=== PATIENT | male | born 1940 | race Caucasian/White ===

== ENCOUNTER → 2023-10-11 10:59 | Outpatient (REF) | payer OTHER, SELFPAY ==
[2023-10-11 15:21] LABS: Hematocrit 46.6 % (39.0-52.0); Hemoglobin 15.5 g/dL (13.0-18.0); Mean Corp Hgb Conc. 33.3 g/dL (33.0-37.0); Mean Corpuscular Hgb 30.6 pg (27.0-31.0); Mean Corpuscular Volume 91.9 fL (80.0-94.0); Mean Platelet Volume 11.3 fL (7.4-10.4); Platelet Count 141 10^3/uL (130-400); Red Blood Cell Count 5.07 10^6/uL (4.70-6.10); Red Cell Dist. Width 14.6 % (11.5-14.5)
[2023-10-11 15:29] LABS: ALT (SGPT) 27 U/L (0-50); AST (SGOT) 36 U/L (17-59); Albumin 3.8 g/dl (3.5-5.0); Alkaline Phosphatase 101 U/L (38-126); Blood Urea Nitrogen 22 mg/dl (9-20); Calcium 9.4 mg/dl (8.4-10.2); Carbon Dioxide 28 mmol/L (22-30); Chloride 101 mmol/L (98-107); Glucose 87 mg/dl (70-99); Sodium 139 mmol/L (135-145); Total Bilirubin 0.8 mg/dl (0.2-1.3); Total Protein 6.9 g/dl (6.3-8.2); eGFR 59.63
[2023-10-11 16:00] LABS: Testosterone, Total 16.3 ng/dl (72-623)
== END ==
LOC: HWLAB 10:59
PROVIDERS: ATTENDING PHYSICIAN Specialist; FAMILY PHYSICIAN Nurse Practitioner Family
DX: C67.2 Malignant neoplasm of lateral wall of bladder (principal); C61 Malignant neoplasm of prostate
CPT/HCPCS: 36415; 80053; 84153; 84403; 85027

== ENCOUNTER → 2024-01-06 11:58 | Outpatient (REF) | payer OTHER, SELFPAY ==
[2024-01-06 16:31] LABS: ALT (SGPT) 25 U/L (0-50); AST (SGOT) 34 U/L (17-59); Albumin 4.1 g/dl (3.5-5.0); Alkaline Phosphatase 120 U/L (38-126); Blood Urea Nitrogen 25 mg/dl (9-20); Calcium 9.4 mg/dl (8.4-10.2); Carbon Dioxide 32 mmol/L (22-30); Chloride 101 mmol/L (98-107); Glucose 83 mg/dl (70-99); Potassium 4.7 mmol/L (3.5-5.1); Sodium 136 mmol/L (135-145); Total Bilirubin 0.7 mg/dl (0.2-1.3); Total Protein 7.3 g/dl (6.3-8.2); eGFR > 60.00
== END ==
LOC: HWLAB 11:58
PROVIDERS: ATTENDING PHYSICIAN Specialist; FAMILY PHYSICIAN Nurse Practitioner Family
DX: C67.2 Malignant neoplasm of lateral wall of bladder (principal); C61 Malignant neoplasm of prostate
CPT/HCPCS: 36415; 80053; 84153

== ENCOUNTER → 2024-01-23 07:55 | Outpatient (REF) | payer OTHER, SELFPAY ==
[2024-01-23 12:18] LABS: ALT (SGPT) 13 U/L (0-50); AST (SGOT) 25 U/L (17-59); Albumin 3.9 g/dl (3.5-5.0); Alkaline Phosphatase 97 U/L (38-126); Blood Urea Nitrogen 23 mg/dl (9-20); Calcium 9.3 mg/dl (8.4-10.2); Carbon Dioxide 31 mmol/L (22-30); Chloride 101 mmol/L (98-107); Glucose 97 mg/dl (70-99); Potassium 4.7 mmol/L (3.5-5.1); Sodium 139 mmol/L (135-145); Total Bilirubin 0.6 mg/dl (0.2-1.3); Total Protein 7.2 g/dl (6.3-8.2); eGFR 59.63
== END ==
LOC: HWLAB 07:55
PROVIDERS: ATTENDING PHYSICIAN Internal Medicine Hematology & Oncology; FAMILY PHYSICIAN Nurse Practitioner Family; REFERRING PHYSICIAN Specialist
DX: C67.2 Malignant neoplasm of lateral wall of bladder (principal)
CPT/HCPCS: 36415; 80053; 84153

== ENCOUNTER → 2024-01-23 14:09 | Outpatient (REF) | payer OTHER, SELFPAY | LOC: CLAB 14:09 | PROVIDERS: ATTENDING PHYSICIAN Specialist | DX: C67.2 Malignant neoplasm of lateral wall of bladder (principal) | CPT/HCPCS: 88112 ==

== ENCOUNTER → 2024-02-06 11:13 | Outpatient (REF) | payer OTHER, SELFPAY ==
[2024-02-06 14:42] LABS: HDL Cholesterol 63 mg/dl; LDL Cholesterol, Calculated 62 mg/dl; Total Cholesterol 137 mg/dl (50-199); Triglyceride 61 mg/dl (10-149); Very Low Density Lipoprotein 12 mg/dl (0-30)
== END ==
LOC: HWLAB 11:13
PROVIDERS: ATTENDING PHYSICIAN Nurse Practitioner; FAMILY PHYSICIAN Nurse Practitioner Family
DX: E78.5 Hyperlipidemia, unspecified (principal)
CPT/HCPCS: 36415; 80061

== ENCOUNTER → 2024-02-28 09:21 | Outpatient (REF) | payer OTHER, SELFPAY | LOC: HWRCS 09:21 | PROVIDERS: ATTENDING PHYSICIAN Nurse Practitioner; FAMILY PHYSICIAN Nurse Practitioner Family | DX: I25.5 Ischemic cardiomyopathy (principal) | CPT/HCPCS: 93306 ==

== ENCOUNTER → 2024-03-30 09:55 | Outpatient (REF) | payer OTHER, SELFPAY | LOC: HWLAB 09:55 | PROVIDERS: ATTENDING PHYSICIAN Internal Medicine Hematology & Oncology; FAMILY PHYSICIAN Nurse Practitioner Family | DX: C61 Malignant neoplasm of prostate (principal); C67.9 Malignant neoplasm of bladder, unspecified | CPT/HCPCS: 36415; 84153 ==

== ENCOUNTER → 2024-04-16 09:45 | Outpatient (REF) | payer OTHER, SELFPAY ==
[2024-04-16 14:31] LABS: ALT (SGPT) 14 U/L (0-50); AST (SGOT) 23 U/L (17-59); Albumin 2.8 g/dl (3.5-5.0); Alkaline Phosphatase 137 U/L (38-126); Blood Urea Nitrogen 18 mg/dl (9-20); Calcium 9.6 mg/dl (8.4-10.2); Carbon Dioxide 31 mmol/L (22-30); Chloride 102 mmol/L (98-107); Glucose 93 mg/dl (70-99); Potassium 4.9 mmol/L (3.5-5.1); Sodium 140 mmol/L (135-145); Total Bilirubin 0.7 mg/dl (0.2-1.3); Total Protein 6.8 g/dl (6.3-8.2); eGFR 59.26
== END ==
LOC: HWLAB 09:45
PROVIDERS: ATTENDING PHYSICIAN Internal Medicine Hematology & Oncology; FAMILY PHYSICIAN Nurse Practitioner Family
DX: C61 Malignant neoplasm of prostate (principal); C67.9 Malignant neoplasm of bladder, unspecified
CPT/HCPCS: 36415; 80053; 84153

== ENCOUNTER → 2024-07-17 11:34 | Outpatient (REF) | payer OTHER, SELFPAY ==
[2024-07-17 16:53] LABS: % Basophils 0.6 % (0-2); % Eosinophils 2.8 % (0-6); % Immature Granulocytes 0.4 % (0-0.5); % Lymphocytes 17.7 % (20.5-51.1); % Monocytes 10.7 % (1.7-9.3); % Neutrophils 67.8 % (42.2-75.2); Absolute Basophils 0.1 10^3/uL (0-0.2); Absolute Eosinophils 0.2 10^3/uL (0-0.7); Absolute Lymphocytes 1.5 10^3/uL (1.2-3.4); Absolute Monocytes 0.9 10^3/uL (0.1-0.6); Absolute Neutrophils 5.7 10^3/uL (1.4-6.5); Hematocrit 44.6 % (39.0-52.0); Hemoglobin 14.6 g/dL (13.0-18.0); Mean Corp Hgb Conc. 32.7 g/dL (33.0-37.0); Mean Corpuscular Hgb 30.2 pg (27.0-31.0); Mean Corpuscular Volume 92.3 fL (80.0-94.0); Mean Platelet Volume 10.6 fL (7.4-10.4); Nucleated Red Blood Cells % 0 % (-); Platelet Count 216 10^3/uL (130-400); Red Blood Cell Count 4.83 10^6/uL (4.70-6.10); Red Cell Dist. Width 14.5 % (11.5-14.5); White Blood Cell Count 8.4 10^3/uL (4.8-10.8)
[2024-07-17 17:01] LABS: ALT (SGPT) < 10 U/L (0-50); AST (SGOT) 18 U/L (17-59); Albumin 3.8 g/dl (3.5-5.0); Alkaline Phosphatase 112 U/L (38-126); Blood Urea Nitrogen 19 mg/dl (9-20); Calcium 9.5 mg/dl (8.4-10.2); Carbon Dioxide 35 mmol/L (22-30); Chloride 100 mmol/L (98-107); Glucose 97 mg/dl (70-99); Potassium 5.3 mmol/L (3.5-5.1); Sodium 141 mmol/L (135-145); Total Bilirubin 0.7 mg/dl (0.2-1.3); eGFR > 60.00
== END ==
LOC: HWLAB 11:34
PROVIDERS: ATTENDING PHYSICIAN Internal Medicine Hematology & Oncology; FAMILY PHYSICIAN Nurse Practitioner Family
DX: C61 Malignant neoplasm of prostate (principal); C67.9 Malignant neoplasm of bladder, unspecified
CPT/HCPCS: 36415; 80053; 84153; 85025

== ENCOUNTER → 2024-09-06 11:18 | Outpatient (REF) | payer OTHER, SELFPAY ==
[2024-09-06 13:35] LABS: Potassium 4.5 mmol/L (3.5-5.1)
== END ==
LOC: HWLAB 11:18
PROVIDERS: ATTENDING PHYSICIAN Nurse Practitioner Family
DX: R06.09 Other forms of dyspnea (principal); E87.5 Hyperkalemia
CPT/HCPCS: 36415; 71046; 84132

== ENCOUNTER → 2024-10-15 12:27 | Outpatient (REF) | payer OTHER, SELFPAY ==
[2024-10-15 15:46] LABS: % Basophils 0.5 % (0-2); % Eosinophils 1.7 % (0-6); % Immature Granulocytes 0.4 % (0-0.5); % Lymphocytes 16.2 % (20.5-51.1); % Neutrophils 69.2 % (42.2-75.2); Absolute Eosinophils 0.1 10^3/uL (0-0.7); Absolute Lymphocytes 1.3 10^3/uL (1.2-3.4); Absolute Monocytes 0.9 10^3/uL (0.1-0.6); Absolute Neutrophils 5.4 10^3/uL (1.4-6.5); Hematocrit 42.2 % (39.0-52.0); Hemoglobin 13.2 g/dL (13.0-18.0); Mean Corp Hgb Conc. 31.3 g/dL (33.0-37.0); Mean Corpuscular Hgb 28.5 pg (27.0-31.0); Mean Corpuscular Volume 91.1 fL (80.0-94.0); Mean Platelet Volume 10.5 fL (7.4-10.4); Nucleated Red Blood Cells % 0 % (-); Platelet Count 231 10^3/uL (130-400); Red Blood Cell Count 4.63 10^6/uL (4.70-6.10); Red Cell Dist. Width 14.1 % (11.5-14.5); White Blood Cell Count 7.8 10^3/uL (4.8-10.8)
[2024-10-15 15:57] LABS: ALT (SGPT) < 10 U/L (0-50); AST (SGOT) 15 U/L (17-59); Albumin 3.5 g/dl (3.5-5.0); Alkaline Phosphatase 110 U/L (38-126); Blood Urea Nitrogen 18 mg/dl (9-20); Calcium 8.8 mg/dl (8.4-10.2); Carbon Dioxide 27 mmol/L (22-30); Chloride 99 mmol/L (98-107); Glucose 83 mg/dl (70-99); Potassium 4.2 mmol/L (3.5-5.1); Sodium 136 mmol/L (135-145); Total Protein 6.6 g/dl (6.3-8.2); eGFR > 60.00
== END ==
LOC: HWLAB 12:27
PROVIDERS: ATTENDING PHYSICIAN Internal Medicine Hematology & Oncology; FAMILY PHYSICIAN Nurse Practitioner Family
DX: C61 Malignant neoplasm of prostate (principal); C67.9 Malignant neoplasm of bladder, unspecified
CPT/HCPCS: 36415; 80053; 84153; 85025

== ENCOUNTER 2024-11-14 19:09 | Inpatient (IN) | payer OTHER, SELFPAY ==
[2024-11-14] VITALS (9 sets, daily range): BP systolic 133–179; BP diastolic 74–138; BMI 24.7; BMI 25.0
--- NOTE | 2024-11-14 14:32 | ED.GENMED ---
History of Present Illness
<Tomy Dorman PA-C - Last Filed: 11/14/24 14:37>
General
Chief Complaint: Musculo-Skeletal Complaint
Source: patient
Exam Limitations: none
Time Seen by Provider: 11/14/24 14:04
History of Present Illness
History of Present Illness:
84-year-old male presents with right hip pain following a fall he sustained 2 weeks ago. He fell onto his right hip and some pain and occasional giving way sensation. He is also been complaining of a headache generalized fatigue decreased appetite
and weight loss. He has a history of bladder cancer and is currently followed by oncology. He lives at home with his family. He uses a walker for ambulation as of more recently. Otherwise, he has multiple vague complaints.
Past History
<Tomy Dorman PA-C - Last Filed: 11/14/24 14:37>
Past History
ED Past Medical History: Arrthythmia (Bradycardia), CAD, Cancer (Prostate, bladder), GERD, HTN and Other (Rheumatoid arthritis)
ED Past Surgical History: Cholecystectomy and Urological (prostatectomy, cysto w/ bladder lesion resection)
Social History
Tobacco: Former smoker
Alcohol: Occasional
Drug: None
Personal:
Living: with family
Employment: Retired
Family History
Family History: Hypertension
Phy Exam
<Tomy Dorman PA-C - Last Filed: 11/14/24 14:37>
Physical Exam
Physical Exam:
General: Elderly male chronically ill in appearance
HEENT: Normocephalic atraumatic
Heart: Regular rate and rhythm
Lungs: Clear no wheeze
Abdomen is soft nontender nondistended no guarding or rebound
Extremities: No cyanosis or edema
Musculoskeletal exam: Patient is tender over the right lateral hip. No deformities. Good passive range of motion.
Course
<Tomy Dorman PA-C - Last Filed: 11/14/24 14:37>
Orders/Labs/Results
Orders:
Orders
11/14/24 14:24
CT Head W/o Iv Contrast Urgent
Comment:
Reason For Exam: fall
CR Hip - RT w/wo Pel 2-3 Vw* Urgent
Comment:
Reason For Exam: pain after fall right hip
Include a pelvis x-ray?: Yes
11/14/24 14:26
CR Chest - 2 Views Urgent
Comment:
Reason For Exam: weakness, cough
11/14/24 14:32
Complete Blood Count/With Diff Urgent
Comprehensive Metabolic Panel Urgent
11/14/24 Dinner
Cholesterol Lowering
At Your Request: Non-Participating
Cholesterol Lowering: Sodium, 2 Gram
11/14/24 15:34
CT Pelvis W/o Iv Contrast Urgent
Comment:
Reason For Exam: right hip pain
11/14/24 18:37
Admit/Transfer Patient As Directed
Co-Sign Provider:
Level of Care: Inpatient admission
Assign to:: Medical/Surgical
Physician / Group: Edin Roberson
Diagnosis: acute nondisplaced fx of R greater trochanter
Reason for Hospitalization: acute nondisplaced fx of R greater trochanter
Expected length of stay greater than two midnights?: Yes
ELOS- Estimated Length of Stay in days: 3
I certify the patient meets the requirements for IP care: Yes
PRN Pain Medication Management As Directed
May give lesser potent ordered pain med per pt: Yes
preference::
Protocol:: Medication orders for pain may be administered in a
manner that supports deferring to patient preference
when the pt is:
- Requesting an ordered lesser potent pain medication.
Least to most potent pain medications are defined
as: acetaminophen < NSAID < tramadol < opioids
(morphine, oxycodone, hydromorphone).
- Requesting a lesser dose of the same medication IF
ORDERED.
- Requesting a less intrusive route of administration
if both routes are prescribed by the provider (PO <
IV).
11/14/24 18:39
Code Status As Directed
Resuscitation Status: Do not resuscitate
Reached after discussion with pt or family/Healthcare POA: Yes
11/14/24 18:40
DNR Bracelet Application ONCE
11/14/24 19:13
Urinalysis Reflex To Culture Routine
Urine Microscopic Reflex Cult Routine
Urine Culture Routine
GENTRY Source: U
Specimen Description:
11/14/24 20:12
Acetaminophen [Tylenol] 650 mg PO Q4HPRN PRN
Hydroxychloroquine [Plaquenil] 200 mg PO BID
11/14/24 20:12
ORTHOPEDIC CONSULT Routine
Consulting Provider: Cristopher Baig
Was physician already notified: Yes
Activity As Directed
Activity Level: Out of Bed-Early Mobility
Pneumatic Compression Sleeves As Directed
Type: Knee high
Vital Signs As Directed
Frequency: Per unit guidelines
Weight As Directed
Frequency: Once
Ot Eval And Treat Routine
Pt Eval And Treat Routine
Activity Level: With Assistance
DX Deep Vein Thrombosis Video Routine
11/14/24 21:00
Metoprolol Xl [Toprol Xl] 25 mg PO BID
11/15/24 Breakfast
NPO
Allow oral meds: Yes
Allow clear liquids: No
Basic Metabolic Panel IN AM
Complete Blood Count/No Diff IN AM
11/15/24 08:00
Amlodipine [Norvasc] 5 mg PO DAILY
Aspirin Low Dose EC [Aspir Low (Enteric Coated)] 81 mg PO DAILY
Calcium Carbonate/Vitamin D3 [Oscal 500 + D] 500 mg PO DAILY
Lisinopril [Zestril] 40 mg PO DAILY
Memantine HCl [Namenda] 5 mg PO DAILY
Pantoprazole [Protonix] 20 mg PO DAILY
Prednisone [Deltasone] 2.5 mg PO DAILY
Rosuvastatin Calcium [Crestor] 10 mg PO DAILY
Spironolactone [Aldactone] 25 mg PO DAILY
Vit C/Vit E/Lutein/Min/[place]-3 [Ocuvite Softgel] 1 cap PO DAILY
enzalutamide [Xtandi] See Dose Instructions PO DAILY
Abnormal Lab Results
11/14/24
14:32
RBC 4.19 L 10^6/uL
(4.70-6.10)
Hgb 12.3 L g/dL
(13.0-18.0)
Hct 37.6 L %
(39.0-52.0)
MCHC 32.7 L g/dL
(33.0-37.0)
RDW 14.9 H %
(11.5-14.5)
Absolute Neuts (auto) 7.2 H 10^3/uL
(1.4-6.5)
Absolute Lymphs (auto) 0.9 L 10^3/uL
(1.2-3.4)
Absolute Monos (auto) 1.0 H 10^3/uL
(0.1-0.6)
Neutrophils % 77.6 H %
(42.2-75.2)
Lymphocytes % 10.0 L %
(20.5-51.1)
Monocytes % 11.0 H %
(1.7-9.3)
BUN 22 H mg/dl
(9-20)
Alkaline Phosphatase 142 H U/L
(38-126)
Albumin 3.3 L g/dl
(3.5-5.0)
11/14/24 14:32
11/14/24 14:32
Vital Signs
Initial and Last Documented VS:
Initial Vital Signs
Pulse Resp BP Pulse Ox
60 18 133/74 96
11/14/24 13:11 11/14/24 13:11 11/14/24 13:11 11/14/24 13:11
Last Documented Vital Signs
Temp Pulse Resp BP Pulse Ox
37.1 C 52 16 168/92 97
11/14/24 23:13 11/14/24 23:13 11/14/24 23:13 11/14/24 23:13 11/14/24 23:13
<Jennifer Schuler PA-C - Last Filed: 11/14/24 23:57>
Orders/Labs/Results
Orders:
Orders
11/14/24 14:24
CT Head W/o Iv Contrast Urgent
Comment:
Reason For Exam: fall
CR Hip - RT w/wo Pel 2-3 Vw* Urgent
Comment:
Reason For Exam: pain after fall right hip
Include a pelvis x-ray?: Yes
11/14/24 14:26
CR Chest - 2 Views Urgent
Comment:
Reason For Exam: weakness, cough
11/14/24 14:32
Complete Blood Count/With Diff Urgent
Comprehensive Metabolic Panel Urgent
11/14/24 Dinner
Cholesterol Lowering
At Your Request: Non-Participating
Cholesterol Lowering: Sodium, 2 Gram
11/14/24 15:34
CT Pelvis W/o Iv Contrast Urgent
Comment:
Reason For Exam: right hip pain
11/14/24 18:37
Admit/Transfer Patient As Directed
Co-Sign Provider:
Level of Care: Inpatient admission
Assign to:: Medical/Surgical
Physician / Group: Edin Roberson
Diagnosis: acute nondisplaced fx of R greater trochanter
Reason for Hospitalization: acute nondisplaced fx of R greater trochanter
Expected length of stay greater than two midnights?: Yes
ELOS- Estimated Length of Stay in days: 3
I certify the patient meets the requirements for IP care: Yes
PRN Pain Medication Management As Directed
May give lesser potent ordered pain med per pt: Yes
preference::
Protocol:: Medication orders for pain may be administered in a
manner that supports deferring to patient preference
when the pt is:
- Requesting an ordered lesser potent pain medication.
Least to most potent pain medications are defined
as: acetaminophen < NSAID < tramadol < opioids
(morphine, oxycodone, hydromorphone).
- Requesting a lesser dose of the same medication IF
ORDERED.
- Requesting a less intrusive route of administration
if both routes are prescribed by the provider (PO <
IV).
11/14/24 18:39
Code Status As Directed
Resuscitation Status: Do not resuscitate
Reached after discussion with pt or family/Healthcare POA: Yes
11/14/24 18:40
DNR Bracelet Application ONCE
11/14/24 19:13
Urinalysis Reflex To Culture Routine
Urine Microscopic Reflex Cult Routine
Urine Culture Routine
GENTRY Source: U
Specimen Description:
11/14/24 20:12
Acetaminophen [Tylenol] 650 mg PO Q4HPRN PRN
Hydroxychloroquine [Plaquenil] 200 mg PO BID
11/14/24 20:12
ORTHOPEDIC CONSULT Routine
Consulting Provider: Cristopher Baig
Was physician already notified: Yes
Activity As Directed
Activity Level: Out of Bed-Early Mobility
Pneumatic Compression Sleeves As Directed
Type: Knee high
Vital Signs As Directed
Frequency: Per unit guidelines
Weight As Directed
Frequency: Once
Ot Eval And Treat Routine
Pt Eval And Treat Routine
Activity Level: With Assistance
DX Deep Vein Thrombosis Video Routine
11/14/24 21:00
Metoprolol Xl [Toprol Xl] 25 mg PO BID
11/15/24 Breakfast
NPO
Allow oral meds: Yes
Allow clear liquids: No
Basic Metabolic Panel IN AM
Complete Blood Count/No Diff IN AM
11/15/24 08:00
Amlodipine [Norvasc] 5 mg PO DAILY
Aspirin Low Dose EC [Aspir Low (Enteric Coated)] 81 mg PO DAILY
Calcium Carbonate/Vitamin D3 [Oscal 500 + D] 500 mg PO DAILY
Lisinopril [Zestril] 40 mg PO DAILY
Memantine HCl [Namenda] 5 mg PO DAILY
Pantoprazole [Protonix] 20 mg PO DAILY
Prednisone [Deltasone] 2.5 mg PO DAILY
Rosuvastatin Calcium [Crestor] 10 mg PO DAILY
Spironolactone [Aldactone] 25 mg PO DAILY
Vit C/Vit E/Lutein/Min/[place]-3 [Ocuvite Softgel] 1 cap PO DAILY
enzalutamide [Xtandi] See Dose Instructions PO DAILY
Abnormal Lab Results
11/14/24
14:32
RBC 4.19 L 10^6/uL
(4.70-6.10)
Hgb 12.3 L g/dL
(13.0-18.0)
Hct 37.6 L %
(39.0-52.0)
MCHC 32.7 L g/dL
(33.0-37.0)
RDW 14.9 H %
(11.5-14.5)
Absolute Neuts (auto) 7.2 H 10^3/uL
(1.4-6.5)
Absolute Lymphs (auto) 0.9 L 10^3/uL
(1.2-3.4)
Absolute Monos (auto) 1.0 H 10^3/uL
(0.1-0.6)
Neutrophils % 77.6 H %
(42.2-75.2)
Lymphocytes % 10.0 L %
(20.5-51.1)
Monocytes % 11.0 H %
(1.7-9.3)
BUN 22 H mg/dl
(9-20)
Alkaline Phosphatase 142 H U/L
(38-126)
Albumin 3.3 L g/dl
(3.5-5.0)
11/14/24 14:32
11/14/24 14:32
Vital Signs
Initial and Last Documented VS:
Initial Vital Signs
Pulse Resp BP Pulse Ox
60 18 133/74 96
11/14/24 13:11 11/14/24 13:11 11/14/24 13:11 11/14/24 13:11
Last Documented Vital Signs
Temp Pulse Resp BP Pulse Ox
37.1 C 52 16 168/92 97
11/14/24 23:13 11/14/24 23:13 11/14/24 23:13 11/14/24 23:13 11/14/24 23:13
<Jerrod Manzano MD - Last Filed: 11/14/24 17:35>
Orders/Labs/Results
Orders:
Orders
11/14/24 14:24
CT Head W/o Iv Contrast Urgent
Comment:
Reason For Exam: fall
CR Hip - RT w/wo Pel 2-3 Vw* Urgent
Comment:
Reason For Exam: pain after fall right hip
Include a pelvis x-ray?: Yes
11/14/24 14:26
CR Chest - 2 Views Urgent
Comment:
Reason For Exam: weakness, cough
11/14/24 14:32
Complete Blood Count/With Diff Urgent
Comprehensive Metabolic Panel Urgent
11/14/24 Dinner
Cholesterol Lowering
At Your Request: Non-Participating
Cholesterol Lowering: Sodium, 2 Gram
11/14/24 15:34
CT Pelvis W/o Iv Contrast Urgent
Comment:
Reason For Exam: right hip pain
11/14/24 18:37
Admit/Transfer Patient As Directed
Co-Sign Provider:
Level of Care: Inpatient admission
Assign to:: Medical/Surgical
Physician / Group: Edin Roberson
Diagnosis: acute nondisplaced fx of R greater trochanter
Reason for Hospitalization: acute nondisplaced fx of R greater trochanter
Expected length of stay greater than two midnights?: Yes
ELOS- Estimated Length of Stay in days: 3
I certify the patient meets the requirements for IP care: Yes
PRN Pain Medication Management As Directed
May give lesser potent ordered pain med per pt: Yes
preference::
Protocol:: Medication orders for pain may be administered in a
manner that supports deferring to patient preference
when the pt is:
- Requesting an ordered lesser potent pain medication.
Least to most potent pain medications are defined
as: acetaminophen < NSAID < tramadol < opioids
(morphine, oxycodone, hydromorphone).
- Requesting a lesser dose of the same medication IF
ORDERED.
- Requesting a less intrusive route of administration
if both routes are prescribed by the provider (PO <
IV).
11/14/24 18:39
Code Status As Directed
Resuscitation Status: Do not resuscitate
Reached after discussion with pt or family/Healthcare POA: Yes
11/14/24 18:40
DNR Bracelet Application ONCE
11/14/24 19:13
Urinalysis Reflex To Culture Routine
Urine Microscopic Reflex Cult Routine
Urine Culture Routine
GENTRY Source: U
Specimen Description:
11/14/24 20:12
Acetaminophen [Tylenol] 650 mg PO Q4HPRN PRN
Hydroxychloroquine [Plaquenil] 200 mg PO BID
11/14/24 20:12
ORTHOPEDIC CONSULT Routine
Consulting Provider: Cristopher Baig
Was physician already notified: Yes
Activity As Directed
Activity Level: Out of Bed-Early Mobility
Pneumatic Compression Sleeves As Directed
Type: Knee high
Vital Signs As Directed
Frequency: Per unit guidelines
Weight As Directed
Frequency: Once
Ot Eval And Treat Routine
Pt Eval And Treat Routine
Activity Level: With Assistance
DX Deep Vein Thrombosis Video Routine
11/14/24 21:00
Metoprolol Xl [Toprol Xl] 25 mg PO BID
11/15/24 Breakfast
NPO
Allow oral meds: Yes
Allow clear liquids: No
Basic Metabolic Panel IN AM
Complete Blood Count/No Diff IN AM
11/15/24 08:00
Amlodipine [Norvasc] 5 mg PO DAILY
Aspirin Low Dose EC [Aspir Low (Enteric Coated)] 81 mg PO DAILY
Calcium Carbonate/Vitamin D3 [Oscal 500 + D] 500 mg PO DAILY
Lisinopril [Zestril] 40 mg PO DAILY
Memantine HCl [Namenda] 5 mg PO DAILY
Pantoprazole [Protonix] 20 mg PO DAILY
Prednisone [Deltasone] 2.5 mg PO DAILY
Rosuvastatin Calcium [Crestor] 10 mg PO DAILY
Spironolactone [Aldactone] 25 mg PO DAILY
Vit C/Vit E/Lutein/Min/[place]-3 [Ocuvite Softgel] 1 cap PO DAILY
enzalutamide [Xtandi] See Dose Instructions PO DAILY
Abnormal Lab Results
11/14/24
14:32
RBC 4.19 L 10^6/uL
(4.70-6.10)
Hgb 12.3 L g/dL
(13.0-18.0)
Hct 37.6 L %
(39.0-52.0)
MCHC 32.7 L g/dL
(33.0-37.0)
RDW 14.9 H %
(11.5-14.5)
Absolute Neuts (auto) 7.2 H 10^3/uL
(1.4-6.5)
Absolute Lymphs (auto) 0.9 L 10^3/uL
(1.2-3.4)
Absolute Monos (auto) 1.0 H 10^3/uL
(0.1-0.6)
Neutrophils % 77.6 H %
(42.2-75.2)
Lymphocytes % 10.0 L %
(20.5-51.1)
Monocytes % 11.0 H %
(1.7-9.3)
BUN 22 H mg/dl
(9-20)
Alkaline Phosphatase 142 H U/L
(38-126)
Albumin 3.3 L g/dl
(3.5-5.0)
11/14/24 14:32
11/14/24 14:32
Vital Signs
Initial and Last Documented VS:
Initial Vital Signs
Pulse Resp BP Pulse Ox
60 18 133/74 96
11/14/24 13:11 11/14/24 13:11 11/14/24 13:11 11/14/24 13:11
Last Documented Vital Signs
Temp Pulse Resp BP Pulse Ox
37.1 C 52 16 168/92 97
11/14/24 23:13 11/14/24 23:13 11/14/24 23:13 11/14/24 23:13 11/14/24 23:13
<Tomy Dorman PA-C - Last Filed: 11/14/24 14:37>
MDM/Problems Addressed
Differential Diagnosis Includes:
Primary reason for visit was continued right hip pain and instability following a fall 2 weeks ago no obvious deformities on exam but x-rays right hip pending to evaluate for fracture or dislocation. Secondarily patient is here for generalized
weakness ongoing headache decreased appetite and weight loss.
CT head pending will check labs urinalysis
<Jennifer Schuler PA-C - Last Filed: 11/14/24 23:57>
*Critical Care Note
Total Time (30-74mins, 75-104mins- exclusive of procedures): Not Applicable
<Jennifer Schuler PA-C - Last Filed: 11/14/24 23:57>
Update Note
Update Note:
assumed care from [facility] at [address] which shows aucte nondisplaced greater trochanter fx and metatastatic lesions in iliac bones
will admit to medicine
dr baig from [facility]
ED Attending Note
<Tomy Dorman PA-C - Last Filed: 11/14/24 14:37>
-
Portions of this chart may have been created with voice recognition software.� Occasional wrong word or��sound alike� substitutions may have occurred due to the inherent limitations of voice recognition software.
<Jerrod Manzano MD - Last Filed: 11/14/24 17:35>
ED Attending Note
Patient seen and examined by attending physician: Yes
ED Attending Note:
I have seen and evaluated the patient with a [id number] encounter. I have spoken to the advance practicer provider and involved in the medical history, the physical exam, medical decision making.
Evaluation and management service: agree unless noted differently below.
Results interpretation: agree unless noted differently below.
Focused HPI: 84-year-old male with history as noted presents to the ER with daughter for evaluation of hip pain after a fall. Patient had a mechanical fall about a week ago has had pain in the right hip since. Difficulty bearing weight. He denies
any other injuries including headache, neck pain, back pain, rib pain. He is on aspirin no other blood thinners.
Physical exam: Awake alert, normal vitals. He has tenderness over the greater trochanter on the right; significant pain with range of motion of the right hip but he is able to fully flex and extend. Good distal pulse right lower extremity. No
signs of trauma to the rest of the extremities. No rib tenderness. Head atraumatic. Good range of motion of the cervical spine.
Medical Decision Makin-year-old male presents after fall with right hip pain. Vitals and exam as above. X-ray of the hip no clear fracture. Follow-up CT showed nondisplaced fracture of the greater trochanter. Admit for further
management�will need ortho consultation will need to be nonweightbearing suspect will need placement in rehab.
Discharge Plan
Departure
Patient Disposition: Admit
Date of Disposition: 11/14/24
Time of Disposition: 17:20
Admit to: Med/Surg
Presentation/result/management discussed w/ accepting MD/DO: Hospitalist
Condition: Fair
Covid-19: Not Applicable
Discharge Problem:
Closed hip fracture, Metastatic cancer to bone
Interventions
Interventions:
*Risk Screen - Suicide Last Done: 11/14/24 13:11
*General Assessment Last Done: 11/14/24 13:11
*Neglect/Abuse Screening Last Done: 11/14/24 20:10
*ED- Fall Risk Assessment Last Done: 11/14/24 14:41
*ED COVID-19 Vaccine History Last Done: 11/14/24 13:11
*Nursing Disposition Last Done: 11/14/24 20:10
ED-Musculoskeletal Assessment Last Done: 11/14/24 14:41
Discharge Date and Time
Discharge Date/Time: 11/14/24 20:17
[2024-11-14 14:44] LABS: % Basophils 0.4 % (0-2); % Eosinophils 0.7 % (0-6); % Immature Granulocytes 0.3 % (0-0.5); % Neutrophils 77.6 % (42.2-75.2); Absolute Eosinophils 0.1 10^3/uL (0-0.7); Absolute Lymphocytes 0.9 10^3/uL (1.2-3.4); Absolute Neutrophils 7.2 10^3/uL (1.4-6.5); Hematocrit 37.6 % (39.0-52.0); Hemoglobin 12.3 g/dL (13.0-18.0); Mean Corp Hgb Conc. 32.7 g/dL (33.0-37.0); Mean Corpuscular Hgb 29.4 pg (27.0-31.0); Mean Corpuscular Volume 89.7 fL (80.0-94.0); Mean Platelet Volume 9.1 fL (7.4-10.4); Nucleated Red Blood Cells % 0 % (-); Platelet Count 210 10^3/uL (130-400); Red Blood Cell Count 4.19 10^6/uL (4.70-6.10); Red Cell Dist. Width 14.9 % (11.5-14.5); White Blood Cell Count 9.2 10^3/uL (4.8-10.8)
[2024-11-14 15:04] LABS: ALT (SGPT) < 10 U/L (0-50); AST (SGOT) 17 U/L (17-59); Albumin 3.3 g/dl (3.5-5.0); Alkaline Phosphatase 142 U/L (38-126); Blood Urea Nitrogen 22 mg/dl (9-20); Carbon Dioxide 30 mmol/L (22-30); Chloride 103 mmol/L (98-107); Estimated Creatinine Clearance 41 ml/min; Glucose 83 mg/dl (70-99); Potassium 4.8 mmol/L (3.5-5.1); Sodium 139 mmol/L (135-145); Total Protein 6.4 g/dl (6.3-8.2); eGFR 59.26
--- NOTE | 2024-11-14 17:34 | HPS.HSE ---
Family Physician
-
Family Physician: ANDREW Mercado
Chief Complaint
-
right hip pain
History of Present Illness
Patient is a 84-year-old male with past medical history significant for essential hypertension, hyperlipidemia, CAD, Alzheimer's disease, GERD, bladder cancer and metastatic prostate cancer who presented to [facility] ED for evaluation of
right hip pain. Patient reports slipping from out of bed approximately 1.5 weeks ago and landed on hard floor on right hip. Denies any loss of consciousness or head strike. He also has complaints of headache, generalized fatigue, decreased appetite
and weight loss. Patient lives at home with daughter and utilizes a walker to ambulate. He reports since fall he has noticed hip pain with ambulation and occasional leg giving out when trying to ambulate, denies any further falls.
Medical History
Past Medical History
Past Medical History: Reports Other
Additional Past Medical History:
essential hypertension
hyperlipidemia
CAD
Alzheimer's disease
GERD
bladder cancer
metastatic prostate cancer
Past Surgical History: Reports Other
Additional Past Surgical History:
Radical perineal prostatectomy [T3a, GG 4+3] 11/2006
Cholecystectomy
TURBT 03/2019
TURBT 09/2020
TURBT 05/2021
right arm surgery 2021
pacemaker 03/2020
Social History
Tobacco: Former Smoker
Alcohol: None
Living: With Family
Employment: Retired
Family History
Family History: Not pertinent
Allergies / Home Medications
Allergies reflects when Allergies were last updated in [facility].
Home Medications with original date entered in [facility]
Allergy/Medication List:
Allergies
Allergy/AdvReac Type Severity Reaction Status Date / Time
penicillin V [Penicillin V] Allergy patient Verified 11/14/24 13:14
states
this was
many years
ago
Home Medications
hydroxychloroquine 200 mg tablet 200 mg PO BID Autoimmune disorder 10/03/19
aspirin 81 mg tablet,delayed release 81 mg PO DAILY Blood clot prevention/tx 03/27/20
prednisone 2.5 mg tablet 2.5 mg PO DAILY Anti-inflammatory 03/27/20
rosuvastatin 10 mg tablet 10 mg PO DAILY High cholesterol 03/27/20
spironolactone 50 mg tablet 25 mg PO DAILY Fluid retention/Swelling 03/27/20
vit C 250 mg-vit E 90 mg-zinc 40 mg-copper 1 [id number] capsule (PreserVision AREDS-2) 1 cap PO DAILY Supplement 03/27/20
amlodipine 5 mg tablet 5 mg PO DAILY Blood pressure 05/17/22
lansoprazole 15 mg capsule,delayed release 15 mg PO DAILY Gastrointestinal issue 05/17/22
lisinopril 40 mg tablet 40 mg PO DAILY Blood pressure 05/17/22
calcium 600 mg (as carbonate)-vitamin D3 10 mcg (400 unit) tablet (Calcium 600 + D(3)) 1 tab PO DAILY 11/14/24
enzalutamide 40 mg capsule (Xtandi) 80 mg PO DAILY 11/14/24
memantine 5 mg tablet 5 mg PO DAILY 11/14/24
metoprolol succinate 50 mg tablet,extended release 24 hr 25 mg PO BID 11/14/24
Review of Systems
-
History Source: Patient
Constitutional: Reports Weight Loss and Fatigue
EENT: Reports No Symptoms
Respiratory: Reports No Symptoms
Cardiac: Reports No Symptoms
Abdomen/GI: Reports No Symptoms
: Reports No Symptoms
Musculoskeletal: Reports Other (right hip pain, unsteady gait )
Skin: Reports No Symptoms
Neurological: Reports No Symptoms
Endocrine: Reports No Symptoms
Hematologic/Lymphatic: Reports No Symptoms
Psych: Reports No Symptoms
Physical Exam
Vital Signs
Vital Signs
Pulse Resp BP Pulse Ox
60 11 161/85 96
11/14/24 14:32 11/14/24 14:32 11/14/24 17:00 11/14/24 17:00
Physical Exam
General: Well Developed, No Apparent Distress, Comfortable and Conversant
HEENT: NormoCephalic, Moist mucous membranes, Atraumatic, [place] Conjunctivae, Nose Appears Normal and Ears Appear Normal
Respiratory: Clear and Non Labored Respirations
Cardiac: S1/S2 and Regular Rhythm; No Murmur, Rub or Gallop
GI: Soft, Non Tender, Non Distended and Normal Bowel Sounds; No Organomegaly
Rectal: Deferred by Provider
Genito-urinary: Deferred by me
Musculoskeletal: No Clubbing, No Cyanosis, No Edema and Other (tender to right hip, has good passive ROM)
Skin: No Rash
Neuro: Awake, Alert and Nonfocal/grossly intact
Psych: Calm
Laboratory Results
-
11/14/24 14:32
11/14/24 14:32
Laboratory Results
Total Bilirubin 1.0 mg/dl (0.2-1.3) 11/14/24 14:32
AST 17 U/L (17-59) 11/14/24 14:32
ALT < 10 U/L (0-50) 11/14/24 14:32
Alkaline Phosphatase 142 U/L (38-126) H 11/14/24 14:32
Data Reviewed
-
Diagnostic Radiology: Report Reviewed by me
CT Scan: Report Reviewed by me
Lab Data: Labs Reviewed by me
Impression/Plan
-
IMPRESSION/PLAN:
#fracture or right greater trochanter
#metastatic prostate cancer
multifocal blastic metastatic disease in bone
Rt Hip x-ray: No evidence of acute fracture or dislocation.
If there are persistent clinical symptoms and further imaging evaluation is desired, consider CT or MRI.
Pelvis CT: 1. ACUTE NONDISPLACED FRACTURE of the RIGHT GREATER TROCHANTER.
2. Severe bilateral osteoarthritis of the hips.
3. MULTIFOCAL BLASTIC OSSEOUS METASTATIC DISEASE.
4. METASTATIC LYMPHADENOPATHY in the right pelvis.
5. 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
6. Severe facet joint arthrosis in the lower lumbar spine with an associated grade 1 anterolisthesis of L4 on L5.
7. Previous prostatectomy.
8. Fusiform infrarenal abdominal aortic aneurysm (2.3 cm AP dimension).
- Admit to med/surg
- Consult ortho
- Consult PT/OT
- continue prednisone and enzalutamide
#essential hypertension
- continue amlodipine, lisinopril, metoprolol and spironolactone
#hyperlipidemia
- continue rosuvastatin
#CAD
- continue aspirin
#ischemic cardiomyopathy
#sick sinus syndrome
s/p pacemaker
ECHO (02/28/2024): Fair imaMildly reduced left ventricular systolic function.ge quality.
Estimated Left ventricular ejection fraction is 40-45%.
Mild mitral regurgitation.
Mild tricuspid regurgitation.
Mild aortic regurgitation.
Compared to the previous echo05/11/2022 there is no significant change.
maintains risk for post surgical cardiovascular complications, patient presenting well compensated at this time.
# Alzheimer's disease
- continue memantine
#GERD
- continue lansoprazole
#hx bladder cancer
Code status: DNR
DVT prophylaxis: SCDs
--- NOTE | 2024-11-14 18:48 | W.PN.UPDATE ---
Update Note
Progress Note Update
This is an addendum to the H&P written by Leanna Anderson on 11/14/2024. Patient seen and examined independently with [employer].
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
Alzheimer's, presenting with fall 2 weeks ago. Fell onto his right hip with ongoing pain.
Labs unremarkable. Hip x-ray shows no abnormality. Pelvic CT scan shows acute nondisplaced fracture of the right greater trochanter, multifocal blastic osseous metastatic disease, prostatic lymphadenopathy in the right pelvis.
N.p.o. past midnight for potential surgery tomorrow. Pain control. Orthopedics consulted.
Patient without any chest pain, shortness of breath or dizziness or swelling. He can normally ambulate upstairs very slowly before the fall. Denies any difficulties with anesthesia in the past. He is at elevated risk for post surgical
cardiovascular complications but appears well compensated at this time and can have surgery.
[2024-11-14 19:19] LABS: Urine Albumin 1+ (Neg - Trace); Urine Bilirubin Negative (Negative); Urine Character Clear (Clear); Urine Color Yellow; Urine Glucose Negative (Negative); Urine Ketone Negative (Negative); Urine Leukocyte 2+ (Negative); Urine Nitrite Positive (Negative); Urine Occult Blood 1+ (Negative); Urine Specific Gravity 1.015 (<1.030); Urine Urobilinogen Negative (Neg - 1+)
[2024-11-14 19:26] LABS: Urine Squamous Cell 0-2 /LPF (Few)
[2024-11-14 19:27] LABS: Urine Bacteria Many (Negative); Urine White Cell 21-25 /HPF (0-5)
[2024-11-14] MEDS: TOPROL XL 25 MG PO (21:13)
[2024-11-14] MEDS: PLAQUENIL 200 MG PO (21:13)
--- NOTE | 2024-11-14 22:27 | PTCARENOTE ---
2014 Received patient from ED via stretcher w/ belongings; Medsurg order> afebrile, HR 58, RR 16, BP 164/90, pox 92% room air. c/o / 'ache' to Right hip. Pt [place] (does not utilize hearing aides) Skin> RFA skin tear (cleansed and silicone foam
applied), Bruise to RLE, sacrum/ buttocks intact.
PMH and medications reviewed by this RN and patient/ external medical records. Plan of care discussed; Pt oriented to room; call ch within reach.
[2024-11-15] VITALS (7 sets, daily range): BP systolic 136–172; BP diastolic 69–95; PULSE 60–61; O2SAT 95; BMI 25.0
--- NOTE | 2024-11-15 07:12 | W.PN.UPDATE ---
Update Note
Progress Note Update
Full orthopedic consult dictated:
Dx: Right hip nondisplaced fracture involving the greater trochanter
Plan: Patient examination today reveals pain directly over the greater trochanter. He is able to actively move his leg around and the pain is localized to the greater trochanter (no pain in the groin). His CT scan showed nondisplaced fracture
involving the right greater trochanter only. He does have severe hip osteoarthritis bilaterally along with multifocal blastic osseous metastatic disease. I spoke with patient and his daughter daughter, Nidia Joseph, and relayed that no surgical
intervention necessary. He may weight-bear as tolerated with walker but will have hip abductor precautions. Ice with elevation along with Tylenol as needed. PT/OT consult along with social service consult for disposition. Follow-up with
orthopedics 4 weeks for x-ray. Orthopedics to sign off for now.
[2024-11-15 07:17] LABS: Hematocrit 37.6 % (39.0-52.0); Hemoglobin 12.3 g/dL (13.0-18.0); Mean Corp Hgb Conc. 32.7 g/dL (33.0-37.0); Mean Corpuscular Hgb 29.2 pg (27.0-31.0); Mean Corpuscular Volume 89.3 fL (80.0-94.0); Mean Platelet Volume 9.8 fL (7.4-10.4); Platelet Count 244 10^3/uL (130-400); Red Blood Cell Count 4.21 10^6/uL (4.70-6.10); Red Cell Dist. Width 14.7 % (11.5-14.5); White Blood Cell Count 8.6 10^3/uL (4.8-10.8)
[2024-11-15] MEDS: PROTONIX 20 MG PO (07:28)
[2024-11-15] MEDS: DELTASONE 2.5 MG PO (07:28)
[2024-11-15] MEDS: OCUVITE SOFTGEL 1 CAP PO (07:31)
[2024-11-15] MEDS: ALDACTONE 25 MG PO (07:31)
[2024-11-15] MEDS: TOPROL XL 25 MG PO ×2 (07:31→20:05)
[2024-11-15] MEDS: ZESTRIL 40 MG PO (07:31)
[2024-11-15] MEDS: NORVASC 5 MG PO (07:31)
[2024-11-15] MEDS: OSCAL 500 + D 500 MG PO (07:31)
[2024-11-15] MEDS: PLAQUENIL 200 MG PO ×2 (07:31→20:05)
[2024-11-15] MEDS: ASPIR LOW (ENTERIC COATED) 81 MG PO (07:31)
[2024-11-15] MEDS: CRESTOR 10 MG PO (07:32)
[2024-11-15] MEDS: NAMENDA 5 MG PO (07:32)
[2024-11-15 07:45] LABS: Blood Urea Nitrogen 22 mg/dl (9-20); Carbon Dioxide 26 mmol/L (22-30); Chloride 103 mmol/L (98-107); Estimated Creatinine Clearance 45 ml/min; Glucose 75 mg/dl (70-99); Potassium 4.5 mmol/L (3.5-5.1); Sodium 138 mmol/L (135-145); eGFR > 60.00
--- NOTE | 2024-11-15 13:06 | W.PN.HOSP.TC ---
Today's Communication/Plan
-
Assessment / Plan
Assessment / Plan
NAD
Scleral Anicteric
MMM
No JVD
CTABL
RRR, S1/S2
Soft, NT, ND, BS+
-Right hip tenderness that is focal on the lateral proximal portion
Warm, Dry
AAOx3
Calm
Right greater trochanter fracture
Evaluated by orthopedics. Maintain weightbearing status. No indication for surgical mention at this time. Outpatient orthopedic follow-up.
PT OT consulted.
Metastatic prostate cancer
Continue prednisone and enzalutamide
Hypertension
Continue antihypertensive
Hyperlipidemia continues to
CAD continue beta-annamaria statin and aspirin
Chronic HFrEF, ICM
-Known EF 4045%
Continue beta-annamaria MRA CARLOS inhibitor
Would consider discussing with his second worker about an SGLT2 inhibitor
Alzheimer's disease
Continue memantine
GERD continue PPI
Anticipated Discharge: Within 24 hours
Subjective/Interval History
-
Date of Service: November 15, 2024
Seen and examined. No new complaints. No acute overnight events.
Objective Data
-
Labs:
Laboratory Results
11/15/24
06:28
WBC 8.6
Hgb 12.3 L
Hct 37.6 L
Plt Count 244
Sodium 138
Potassium 4.5
Chloride 103
Carbon Dioxide 26
BUN 22 H
Creatinine 1.0
Glucose 75
Calcium 9.0
Vital Signs:
Vital Signs
Temp Pulse Resp BP Pulse Ox
97.6 F 61 14 153/89 94
11/15/24 07:15 11/15/24 09:03 11/15/24 07:15 11/15/24 09:03 11/15/24 07:15
I&O
11/14/24 11/15/24 11/16/24
06:59 06:59 06:59
Intake Total 240 / 240
Balance 240 / 240
--- NOTE | 2024-11-15 14:53 | CM ---
Initial assessment completed
Pt lives with his daughter and son-in-law in a 2 story home; 2 steps to enter, 12 steps to 2nd fl
Independent with adl's, ambulates with rolling walker
DME - rolling walker
Denies snf/hh
PCP - Ming Rodriguez
Pharm - [facility]
PT/OT consult pending
Plan - TBD based on pt needs
[2024-11-16 07:20] VITALS: BP 165/79
[2024-11-16] MEDS: OCUVITE SOFTGEL 1 CAP PO (09:16)
[2024-11-16] MEDS: ALDACTONE 25 MG PO (09:16)
[2024-11-16] MEDS: TOPROL XL 25 MG PO (09:16)
[2024-11-16] MEDS: NORVASC 5 MG PO (09:16)
[2024-11-16] MEDS: PLAQUENIL 200 MG PO (09:17)
[2024-11-16] MEDS: CRESTOR 10 MG PO (09:17)
[2024-11-16] MEDS: ZESTRIL 40 MG PO (09:17)
[2024-11-16] MEDS: ASPIR LOW (ENTERIC COATED) 81 MG PO (09:17)
[2024-11-16] MEDS: DELTASONE 2.5 MG PO (09:17)
[2024-11-16] MEDS: PROTONIX 20 MG PO (09:17)
[2024-11-16] MEDS: NAMENDA 5 MG PO (09:17)
[2024-11-16] MEDS: OSCAL 500 + D 500 MG PO (09:18)
[2024-11-16 09:45] VITALS: BP 171/92; PULSE 60; O2SAT 97
--- NOTE | 2024-11-16 09:56 | PN.CDI ---
CDI
- -
CDI:
Physician Documentation Request
Admit Date: 11/14/24 19:09
Dear Doctor Reese,
Please review the following and provide your response in the progress notes.
Clinical Indicators:
- 11/15 PN 'Right greater trochanter fracture'
- 11/[address] 'MULTIFOCAL BLASTIC OSSEOUS METASTATIC DISEASE'
Please provide further specificity regarding the diagnosis of the right greater trochanter fracture:
Traumatic fracture
Pathologic fracture due to neoplastic disease
Due to a combination of trauma and a pathological process but the trauma alone would not likely have been sufficient to cause the fracture
Other (please specify)
Use of terms such as suspected, likely, concern for, or probable (associated with a specific diagnosis that is being evaluated, monitored, or treated as if it exists) are acceptable and can be coded in the inpatient setting, when documented at the
time of discharge.
Thank you,
Tonya Tran RN
CDI Specialist
Please use your independent medical judgment in providing your response.
--- NOTE | 2024-11-16 10:00 | PTCARENOTE ---
Patient c/o feeling more tired today. Patient states, ' I cannot sleep here.' Patient is also c/o headache, Tylenol given.
[2024-11-16] MEDS: TYLENOL 650 MG PO (10:01)
--- NOTE | 2024-11-16 10:06 | PN.CDI ---
CDI
- -
CDI:
Physician Documentation Request
Admit Date: 11/14/24 19:09
Dear Doctor Reese,
Please review the following and provide your response in the progress notes.
Clinical Indicators:
- 11/15 Endocrinology Teacher note indicates moderate protein calorie malnutrition
- Unintentional weight loss 5% in 1 month
- Nutrient intake </=75% of estimated energy needs for >/= 1 month
Based on the above information and your assessment, which of the following most accurately represents the patient's nutritional status?
Moderate protein calorie malnutrition
Other (please specify)
[place] Criteria ([facility] Hospitalist 2017)
2 or more criteria must be present for either
non severe or severe malnutrition
Note that the criteria differs related to the
presence of an acute or chronic illness
Acute Illness Chronic Illness
Energy Intake Non Severe: <75% for >7 days Non Severe: <75% for >1 month
Severe: <50% for >5 days Severe: <75% for >1 month
Weight Loss Non Severe: 1-2% over 1 week Non Severe: 5% over 1 month
5% over 1 month 7.5% over 3 months
7.5% over 3 months 10% over 6 months
1 year N/A 20% over 1 year
Severe: >2% over 1 week Severe: >5% over 1 month
>5% over 1 month >7.5% over 3 months
>7.5% over 3 months >10% over 6 months
1 year N/A >20% over 1 year
Body Fat Non Severe: Mild Decrease Non Severe: Mild Loss
Severe: Moderate Decrease Severe: Severe Loss
Muscle Mass Non Severe: Mild Decrease Non Severe: Mild Loss
Severe: Moderate Decrease Severe: Severe Loss
Fluid Accumulation Non Severe: Mild Accumulation Non Severe: Mild Accumulation
Severe: Moderate to severe Severe: Moderate to severe
accumulation accumulation
Reduced Polisher Dial Strength Non Severe: N/A Non Severe: N/A
Severe: Measurably reduced Severe: Measurably reduced
Additional criteria that can be used to Determine if Mild or Moderate Malnutrition ([employer] Manual 2018)
Mild Moderate Severe
Albumin gm/dl <3.0 gm/dl <2.5 gm/dl <2.0 gm/dl
Pre Albumin mg/dl <15 gm/dl <10 mg/dl <5.0 mg/dl
BMI <18.5 <17 <16
Use of terms such as suspected, likely, concern for, or probable (associated with a specific diagnosis that is being evaluated, monitored, or treated as if it exists) are acceptable and can be coded in the inpatient setting, when documented at the
time of discharge.
Thank you,
Tonya Tran RN
CDI Specialist
Please use your independent medical judgment in providing your response.
[2024-11-16 12:33] VITALS: BP 135/80; PULSE 61
--- NOTE | 2024-11-16 13:15 | W.PN.HOSP.TC ---
Today's Communication/Plan
-
dc home
Assessment / Plan
Assessment / Plan
NAD
Scleral Anicteric
MMM
No JVD
CTABL
RRR, S1/S2
Soft, NT, ND, BS+
-Right hip tenderness that is focal on the lateral proximal portion
Warm, Dry
AAOx3
Calm
Right greater trochanter fracture Due to a combination of trauma and a pathological process but the trauma alone would not likely have been sufficient to cause the fracture
Evaluated by orthopedics. Maintain weightbearing status. No indication for surgical mention at this time. Outpatient orthopedic follow-up.
PT OT home pt vs snf
-Discussed with family, will take him home, if unable to care for him at home as there is not enough supervision then they will call his pcp for potential snf placement or return to the hospital for placement.
Metastatic prostate cancer
Continue prednisone and enzalutamide
Hypertension
Continue antihypertensive
Hyperlipidemia continues to
CAD continue beta-annamaria statin and aspirin
Chronic HFrEF, ICM
-Known EF 4045%
Continue beta-annamaria MRA CARLOS inhibitor
Would consider discussing with his cheesemaker about an SGLT2 inhibitor
Alzheimer's disease
Continue memantine
GERD continue PPI
moderate protein calorie malnutrition
-ensure tid wm
DC home
Anticipated Discharge: Today
Subjective/Interval History
-
Date of Service: November 16, 2024
seen and examined
no new complaints
no acute overnight events
Objective Data
-
Vital Signs:
Vital Signs
Temp Pulse Resp BP Pulse Ox
97.8 F 61 18 165/79 93
11/16/24 07:20 11/16/24 07:20 11/16/24 07:20 11/16/24 07:20 11/16/24 07:20
I&O
11/15/24 11/16/24 11/17/24
06:59 06:59 06:59
Intake Total 240 / 240 240 / 240
Output Total 200 / 200 40 / 40
Balance 240 / 240 -200 / -200 200 / 200
--- NOTE | 2024-11-16 14:16 | CM ---
Addendum entered by Rosanne Castano 11/16/24 15:26:
Accepted by [facility] for HH needs
Original Note:
PT recs home with family support
Spoke with pt daughter - agreeable to home PT - No preference to agency. Family plans to adjust schedule
Discussed IMM
Plan - home with VN
--- NOTE | 2024-11-16 14:18 | W.DCSUMMARY ---
Addendum entered and electronically signed by Indio Leigh MD 11/18/24 13:15:
Asymptomatic bacteriuria. Declined/denied burning with urination, urinary frequency, suprapubic tenderness
-Urine culture E. coli greater than 100,000 colony-forming units
-As there is no evidence of confusion or lethargy and no acute cystitis symptomatology will hold off on starting antibiotics. Outpatient PCP follow-up
Original Note:
Discharge Summary
Discharge Data
Date of Admission: 11/14/24
Date of Discharge: 11/16/24
-
Pending Results: No
Hospital Course
84-year-old male with past medical history significant for essential hypertension, hyperlipidemia, CAD, Alzheimer's disease, GERD, bladder cancer and metastatic prostate cancer
Presented with complaints of right hip pain that had started after slipping out of bed approximately 1.5 weeks prior to presenting to the hospital. Right hip x-ray demonstrated no evidence of acute fracture or dislocation however pelvic CT did
demonstrate a acute nondisplaced fracture at the right greater trochanter. Multifocal blastic osseous metastatic disease and metastatic lymphadenopathy in the right pelvis. Evaluated by orthopedic surgery did not believe orthopedic intervention
was required at this time recommended weightbearing status along with physical therapy to evaluate. PT evaluated recommended home PT versus SNF. Eventually elected home PT.
Hip Xray
IMPRESSION: No evidence of acute fracture or dislocation.
If there are persistent clinical symptoms and further imaging evaluation is desired, consider CT or MRI.
CXR
IMPRESSION:
No acute cardiopulmonary abnormality.
CT Pelvis
IMPRESSION:
1. ACUTE NONDISPLACED FRACTURE of the RIGHT GREATER TROCHANTER.
2. Severe bilateral osteoarthritis of the hips.
3. MULTIFOCAL BLASTIC OSSEOUS METASTATIC DISEASE.
4. METASTATIC LYMPHADENOPATHY in the right pelvis.
5. 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
6. Severe facet joint arthrosis in the lower lumbar spine with an associated grade 1 anterolisthesis of L4 on L5.
7. Previous prostatectomy.
8. Fusiform infrarenal abdominal aortic aneurysm (2.3 cm AP dimension).
More than 30 minutes spent in discharge including
Final examination of the patient
Summarizing hospital stay
Instructions for continuing care to all relevant caregivers
Preparation of discharge records, prescriptions, and referral forms
Total time spent (in minutes): 33mins
Discharge Plan
-
Patient Disposition: Home with Home Care
Discharge Diagnosis/Procedures: Right acute nondisplaced greater trochanter fracture
Condition: Good
Diet: As tolerated
Activity: As tolerated
Activity Restrictions/Additional Instructions:
Presented with complaints of right hip pain that had started after slipping out of bed approximately 1.5 weeks prior to presenting to the hospital. Right hip x-ray demonstrated no evidence of acute fracture or dislocation however pelvic CT did
demonstrate a acute nondisplaced fracture at the right greater trochanter. Multifocal blastic osseous metastatic disease and metastatic lymphadenopathy in the right pelvis. Evaluated by orthopedic surgery did not believe orthopedic intervention
was required at this time recommended weightbearing status along with physical therapy to evaluate. PT evaluated recommended home PT versus SNF. Eventually elected home PT.
Hip Xray
IMPRESSION: No evidence of acute fracture or dislocation.
If there are persistent clinical symptoms and further imaging evaluation is desired, consider CT or MRI.
CXR
IMPRESSION:
No acute cardiopulmonary abnormality.
CT Pelvis
IMPRESSION:
1. ACUTE NONDISPLACED FRACTURE of the RIGHT GREATER TROCHANTER.
2. Severe bilateral osteoarthritis of the hips.
3. MULTIFOCAL BLASTIC OSSEOUS METASTATIC DISEASE.
4. METASTATIC LYMPHADENOPATHY in the right pelvis.
5. 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
6. Severe facet joint arthrosis in the lower lumbar spine with an associated grade 1 anterolisthesis of L4 on L5.
7. Previous prostatectomy.
8. Fusiform infrarenal abdominal aortic aneurysm (2.3 cm AP dimension).
Referrals:
Cristopher Baig MD [Active] - in two weeks
Kapil Greco CRNP [Family Provider] -
Prescriptions:
Continued
aspirin 81 MG tablet,delayed release (DR/EC)
81 mg PO DAILY
prednisone 2.5 MG tablet
2.5 mg PO DAILY
spironolactone 50 MG tablet
25 mg PO DAILY
rosuvastatin 10 MG tablet
10 mg PO DAILY
PreserVision AREDS-2 1 EACH capsule
1 cap PO DAILY
amlodipine 5 mg Tablet
5 mg PO DAILY
lansoprazole 15 mg Capsule,Delayed Release(Dr/Ec)
15 mg PO DAILY
lisinopril 40 mg Tablet
40 mg PO DAILY
metoprolol succinate 50 mg Tablet Extended Release 24 Hr
25 mg PO BID
memantine 5 mg Tablet
5 mg PO DAILY
calcium carbonate-vitamin D3 [Calcium 600 + D(3)] 600 mg-10 mcg (400 unit) Tablet
1 tab PO DAILY
Xtandi 40 mg Capsule
80 mg PO DAILY
hydroxychloroquine 200 MG tablet
200 mg PO BID
Discharge Orders:
Discharge Patient (As Directed); Ordered 11/16/24
Ordered By: Indio Leigh
Discharge Date and Time
Print Language: TRISTANIAN
[2024-11-16 15:05] VITALS: BP 145/82
== END 2024-11-16 16:30 | disposition home health service (06) | DRG 543 ==
LOC: 2 SOUTH 19:09
PROVIDERS: Nurse Practitioner Family; Physician Assistant; ADMITTING PHYSICIAN Hospitalist; ATTENDING PHYSICIAN Hospitalist; CONSULT PHYSICIAN Orthopaedic Surgery; EMERGENCY PHYSICIAN Emergency Medicine; FAMILY PHYSICIAN Nurse Practitioner Family
DX: M84.551A Pathological fracture in neoplastic disease, right femur, initial encounter for fracture (principal); C77.5 Secondary and unspecified malignant neoplasm of intrapelvic lymph nodes; C79.51 Secondary malignant neoplasm of bone; I50.22 Chronic systolic (congestive) heart failure; E44.0 Moderate protein-calorie malnutrition; Z66 Do not resuscitate; M16.0 Bilateral primary osteoarthritis of hip; E78.5 Hyperlipidemia, unspecified; G30.9 Alzheimer's disease, unspecified; I25.10 Atherosclerotic heart disease of native coronary artery without angina pectoris; I25.5 Ischemic cardiomyopathy; I49.5 Sick sinus syndrome; I71.43 Infrarenal abdominal aortic aneurysm, without rupture; C61 Malignant neoplasm of prostate; F02.80 Dementia in other diseases classified elsewhere, unspecified severity, without behavioral disturbance, psychotic disturbance, mood disturbance, and anxiety; K21.9 Gastro-esophageal reflux disease without esophagitis; I11.0 Hypertensive heart disease with heart failure; W06.XXXA Fall from bed, initial encounter; Z79.82 Long term (current) use of aspirin; Z85.51 Personal history of malignant neoplasm of bladder; Z87.891 Personal history of nicotine dependence; Z90.79 Acquired absence of other genital organ(s); Z95.0 Presence of cardiac pacemaker; Z79.52 Long term (current) use of systemic steroids; Z79.899 Other long term (current) drug therapy; Z88.0 Allergy status to penicillin; Z68.24 Body mass index [BMI] 24.0-24.9, adult; Z22.358 Carrier of other Enterobacterales
CPT/HCPCS: 51798; 70450; 71046; 72192; 73502; 80048; 80053; 81003; 81015; 85025; 85027; 87077; 87086; 87186; 97116; 97162; 97167; 97535; 99285

== ENCOUNTER → 2025-02-05 11:09 | Outpatient (REF) | payer OTHER, SELFPAY ==
[2025-02-05 16:07] LABS: Blood Urea Nitrogen 30 mg/dl (9-20); Calcium 9.1 mg/dl (8.4-10.2); Carbon Dioxide 27 mmol/L (22-30); Chloride 106 mmol/L (98-107); Glucose 98 mg/dl (70-99); HDL Cholesterol 62 mg/dl; LDL Cholesterol, Calculated 72 mg/dl; Potassium 4.4 mmol/L (3.5-5.1); Sodium 141 mmol/L (135-145); Total Cholesterol 158 mg/dl (50-199); Triglyceride 123 mg/dl (10-149); Very Low Density Lipoprotein 24 mg/dl (0-30); eGFR > 60.00
== END ==
LOC: HWLAB 11:09
PROVIDERS: ATTENDING PHYSICIAN Student in an Organized Health Care Education/Training Program; FAMILY PHYSICIAN Nurse Practitioner Family
DX: I25.10 Atherosclerotic heart disease of native coronary artery without angina pectoris (principal)
CPT/HCPCS: 36415; 80048; 80061

== ENCOUNTER → 2025-03-06 10:35 | Outpatient (REF) | payer OTHER, SELFPAY | LOC: HWRAD 10:35 | PROVIDERS: ATTENDING PHYSICIAN Nurse Practitioner Family | DX: C61 Malignant neoplasm of prostate (principal); R68.84 Jaw pain | CPT/HCPCS: 70110 ==

== ENCOUNTER → 2025-05-20 11:17 | Outpatient (REF) | payer OTHER, SELFPAY ==
[2025-05-20 16:41] LABS: Hematocrit 43.5 % (39.0-52.0); Hemoglobin 14.0 g/dL (13.0-18.0); Mean Corp Hgb Conc. 32.2 g/dL (33.0-37.0); Mean Corpuscular Volume 90.4 fL (80.0-94.0); Nucleated Red Blood Cells % 0 % (-); Platelet Count 239 10^3/uL (130-400); Red Cell Dist. Width 17.0 % (11.5-14.5)
[2025-05-20 17:03] LABS: ALT (SGPT) < 10 U/L (0-50); AST (SGOT) 15 U/L (17-59); Albumin 3.5 g/dl (3.5-5.0); Alkaline Phosphatase 128 U/L (38-126); Blood Urea Nitrogen 15 mg/dl (9-20); Calcium 8.8 mg/dl (8.4-10.2); Carbon Dioxide 28 mmol/L (22-30); Chloride 104 mmol/L (98-107); Glucose 88 mg/dl (70-99); Potassium 4.3 mmol/L (3.5-5.1); Sodium 137 mmol/L (135-145); Total Protein 6.6 g/dl (6.3-8.2); eGFR > 60.00
[2025-05-20 17:24] LABS: PSA, Total - Diagnostic 10.10 ng/ml (0.0-4.0)
== END ==
LOC: HWLAB 11:17
PROVIDERS: ATTENDING PHYSICIAN Internal Medicine Hematology & Oncology; FAMILY PHYSICIAN Nurse Practitioner Family
DX: C61 Malignant neoplasm of prostate (principal); C67.9 Malignant neoplasm of bladder, unspecified
CPT/HCPCS: 36415; 80053; 84153; 85025

== ENCOUNTER 2025-08-17 14:42 | Inpatient (IN) | payer OTHER, SELFPAY ==
[2025-08-17 11:32] VITALS: BMI 21.4
[2025-08-17 11:33] VITALS: BP 173/80
--- NOTE | 2025-08-17 12:50 | ED.GENMED ---
History of Present Illness
<Vivian Daigle PA-C - Last Filed: 08/17/25 14:37>
General
Chief Complaint: Fall
Time Seen by Provider: 08/17/25 12:01
History of Present Illness
History of Present Illness:
Patient is a 89-year-old male with past medical history of dementia, sleep apnea, CAD, hypertension, status post pacemaker for sick sinus syndrome and bladder cancer with mets who presents after a fall outside this morning he was unable to get up
and laid on the ground for over an hour. Reports left hip pain. A 94.4 �F arrival to the ER. Denies any headache, vision, spine pain, nausea.
Past History
<Vivian Daigle PA-C - Last Filed: 08/17/25 14:37>
Past History
ED Past Medical History: Arrthythmia (Bradycardia), CAD, Cancer (Prostate, bladder), GERD, HTN and Other (Rheumatoid arthritis)
ED Past Surgical History: Cholecystectomy and Urological (prostatectomy, cysto w/ bladder lesion resection)
Social History
Tobacco: Former smoker
Alcohol: Occasional
Drug: None
Personal:
Living: with family
Employment: Retired
Family History
Family History: Hypertension
Phy Exam
<Vivian Daigle PA-C - Last Filed: 08/17/25 14:37>
General Physical Exam
General Presentation: well appearing, no apparent distress and other (Frail)
General Skin: dry and cool
General Habitus: normal
General Mental: alert and confused
General Hydration: appears well hydrated
ENT Exam
ENT Exam: EOMI, pharynx normal, neck supple and normocephalic
Eye Exam
Eye Exam: PERRL, cornea clear and conjunctiva normal
Cardiovascular Exam
Cardiovascular Exam: regular rate/rhythm, no edema, no murmur and normal peripheral pulses
Pulmonary Exam
Pulmonary Exam: lungs clear, no respiratory distress, no rales, no crackles, no rhonchi, no stridor, no wheezing and no cough
Gastrointestinal Exam
Gastrointestinal Exam: normal bowel sounds, non tender, soft, no organomegaly, no pulsatile mass and non distended
Neurological Exam
Neurological Exam: alert, oriented x3, no motor deficits and speech normal
Musculoskeletal Exam
Musculoskeletal Exam: full ROM, no edema and other (Left hip pain)
Skin Exam
Skin Exam: normal color, warm/dry, no rash and no petechia
Psychiatric Exam
Psychiatric Exam: normal mood/affect
Course
<Vivian Daigle PA-C - Last Filed: 08/17/25 14:37>
Orders/Labs/Results
Orders:
Orders
08/17/25 12:06
CT Cervical Spine W/o Iv Contr Urgent
Comment:
Reason For Exam: fall
CT Head W/o Iv Contrast Urgent
Comment:
Reason For Exam: fall
CR Hip - LT w/wo Pel 2-3 Vw* Urgent
Comment:
Reason For Exam: fall, hip pain
Include a pelvis x-ray?: Yes
08/17/25 13:19
CPK [Creatine Phosphokinase] Urgent
Complete Blood Count/With Diff Urgent
Comprehensive Metabolic Panel Urgent
Lactic Acid Urgent
08/17/25 13:22
Acetaminophen [Tylenol] 650 mg PO NOW STA
08/17/25 13:24
Electrocardiogram (*1) Urgent
Reason for Study: PreOp
EKG- Treatment ONCE
08/17/25 13:31
Type+Screen Urgent
Electrocardiogram (*1) Urgent
Reason for Study: PreOp
EKG- Treatment ONCE
08/17/25 13:36
Admit/Transfer Patient As Directed
Co-Sign Provider:
Level of Care: Inpatient admission
Assign to:: Medical/Surgical
Physician / Group: hospitalist
Diagnosis: Left intertrochanteric fracture
Reason for Hospitalization: Left intertrochanteric fracture
Expected length of stay greater than two midnights?: Yes
ELOS- Estimated Length of Stay in days: 3
I certify the patient meets the requirements for IP care: Yes
08/17/25 13:37
PRN Pain Medication Management As Directed
May give lesser potent ordered pain med per pt: Yes
preference::
Protocol:: Medication orders for pain may be administered in a
manner that supports deferring to patient preference
when the pt is:
- Requesting an ordered lesser potent pain medication.
Least to most potent pain medications are defined
as: acetaminophen < NSAID < tramadol < opioids
(morphine, oxycodone, hydromorphone).
- Requesting a lesser dose of the same medication IF
ORDERED.
- Requesting a less intrusive route of administration
if both routes are prescribed by the provider (PO <
IV).
08/17/25 13:40
Code Status As Directed
Resuscitation Status: Do not resuscitate
Reached after discussion with pt or family/Healthcare POA: Yes
DNR Bracelet Application ONCE
08/17/25 13:54
CT Pelvis W/o Iv Contrast Urgent
Comment:
Reason For Exam: left Intertrochanteric hip fracture
08/17/25 14:12
Warming [place] [Heating/Cooling [place]] As Directed
Mode:: Automatic
Type of thermoregulation:: Heating
PATIENT'S Goal Temperature:: 96.8 F (36 C)
Comments/Additional Instructions:: Temperature and skin assessment per unit protocol
Vital Signs
Initial and Last Documented VS:
Initial Vital Signs
Temp Pulse Resp BP Pulse Ox
34.7 C L 60 30 173/80 94
08/17/25 11:33 08/17/25 11:33 08/17/25 11:33 08/17/25 11:33 08/17/25 11:33
Last Documented Vital Signs
Temp Pulse Resp BP Pulse Ox
34.7 C L 60 11 173/80 94
08/17/25 11:33 08/17/25 13:04 08/17/25 13:04 08/17/25 11:33 08/17/25 13:04
<Rob Strange, DO - Last Filed: 08/17/25 13:53>
Orders/Labs/Results
Orders:
Orders
08/17/25 12:06
CT Cervical Spine W/o Iv Contr Urgent
Comment:
Reason For Exam: fall
CT Head W/o Iv Contrast Urgent
Comment:
Reason For Exam: fall
CR Hip - LT w/wo Pel 2-3 Vw* Urgent
Comment:
Reason For Exam: fall, hip pain
Include a pelvis x-ray?: Yes
08/17/25 13:19
CPK [Creatine Phosphokinase] Urgent
Complete Blood Count/With Diff Urgent
Comprehensive Metabolic Panel Urgent
Lactic Acid Urgent
08/17/25 13:22
Acetaminophen [Tylenol] 650 mg PO NOW STA
08/17/25 13:24
Electrocardiogram (*1) Urgent
Reason for Study: PreOp
EKG- Treatment ONCE
08/17/25 13:31
Type+Screen Urgent
Electrocardiogram (*1) Urgent
Reason for Study: PreOp
EKG- Treatment ONCE
08/17/25 13:36
Admit/Transfer Patient As Directed
Co-Sign Provider:
Level of Care: Inpatient admission
Assign to:: Medical/Surgical
Physician / Group: hospitalist
Diagnosis: Left intertrochanteric fracture
Reason for Hospitalization: Left intertrochanteric fracture
Expected length of stay greater than two midnights?: Yes
ELOS- Estimated Length of Stay in days: 3
I certify the patient meets the requirements for IP care: Yes
08/17/25 13:37
PRN Pain Medication Management As Directed
May give lesser potent ordered pain med per pt: Yes
preference::
Protocol:: Medication orders for pain may be administered in a
manner that supports deferring to patient preference
when the pt is:
- Requesting an ordered lesser potent pain medication.
Least to most potent pain medications are defined
as: acetaminophen < NSAID < tramadol < opioids
(morphine, oxycodone, hydromorphone).
- Requesting a lesser dose of the same medication IF
ORDERED.
- Requesting a less intrusive route of administration
if both routes are prescribed by the provider (PO <
IV).
08/17/25 13:40
Code Status As Directed
Resuscitation Status: Do not resuscitate
Reached after discussion with pt or family/Healthcare POA: Yes
DNR Bracelet Application ONCE
08/17/25 13:54
CT Pelvis W/o Iv Contrast Urgent
Comment:
Reason For Exam: left Intertrochanteric hip fracture
08/17/25 14:12
Warming [place] [Heating/Cooling [place]] As Directed
Mode:: Automatic
Type of thermoregulation:: Heating
PATIENT'S Goal Temperature:: 96.8 F (36 C)
Comments/Additional Instructions:: Temperature and skin assessment per unit protocol
Vital Signs
Initial and Last Documented VS:
Initial Vital Signs
Temp Pulse Resp BP Pulse Ox
34.7 C L 60 30 173/80 94
08/17/25 11:33 08/17/25 11:33 08/17/25 11:33 08/17/25 11:33 08/17/25 11:33
Last Documented Vital Signs
Temp Pulse Resp BP Pulse Ox
34.7 C L 60 11 173/80 94
08/17/25 11:33 08/17/25 13:04 08/17/25 13:04 08/17/25 11:33 08/17/25 13:04
<Vivian Daigle PA-C - Last Filed: 08/17/25 14:37>
MDM/Problems Addressed
Differential Diagnosis Includes:
Patient placed on Eduarda hugger on arrival due to rectal temperature of 94.4 �F[address] CT head obtained as patient is a poor historian and confused due to history of dementia and this is negative for any acute intracranial injury. CT cervical spine
negative for any injury. Left hip x-ray showed a left trochanteric hip fracture possible right subcapital hip fracture. However patient has no pain on exam to right hip. Discussed with orthopedics and hospitalist to admit patient to their service.
However was able to be removed as patient is now normothermic. Lab work remains pending at the time of disposition.
<Vivian Daigle PA-C - Last Filed: 08/17/25 14:37>
*Pulse Oximetry
SaO2: 94
Oxygen Mode of Delivery: Room air
<Rob Strange DO - Last Filed: 08/17/25 13:53>
*Pulse Oximetry
Patient hypoxic: no
*Critical Care Note
Total Time (30-74mins, 75-104mins- exclusive of procedures): Not Applicable
ED Attending Note
<Vivian Daigle PA-C - Last Filed: 08/17/25 14:37>
-
Portions of this chart may have been created with voice recognition software.� Occasional wrong word or��sound alike� substitutions may have occurred due to the inherent limitations of voice recognition software.
<Rob Strange DO - Last Filed: 08/17/25 13:53>
ED Attending Note
Patient seen and examined by attending physician: Yes
I performed the substantive portion of visit, reviewed & personally made and approve the management plan that is documented in note by myself or FLORENCIO.: Yes
ED Attending Note:
Seen with PA examined independently 85-year-old male apparently fell is outside here he looks confused demented he is cold CT head C-spine noted looks like he has a nondisplaced left hip fracture will check labs warm up, check CPK EKG
Discharge Plan
Departure
Patient Disposition: Admit
Date of Disposition: 08/17/25
Time of Disposition: 13:23
Presentation/result/management discussed w/ accepting MD/DO: Hospitalist
Discharge Problem:
Closed intertrochanteric fracture of left femur, Fall, Hypothermia, Dementia
Prescriptions:
No Action
aspirin 81 MG tablet,delayed release (DR/EC)
81 mg PO DAILY
prednisone 2.5 MG tablet
2.5 mg PO DAILY
spironolactone 50 MG tablet
25 mg PO DAILY
rosuvastatin 10 MG tablet
10 mg PO DAILY
PreserVision AREDS-2 1 EACH capsule
1 cap PO DAILY
amlodipine 5 mg Tablet
5 mg PO DAILY
lansoprazole 15 mg Capsule,Delayed Release(Dr/Ec)
15 mg PO DAILY
lisinopril 40 mg Tablet
40 mg PO DAILY
metoprolol succinate 50 mg Tablet Extended Release 24 Hr
25 mg PO BID
memantine 5 mg Tablet
5 mg PO DAILY
calcium carbonate-vitamin D3 [Calcium 600 + D(3)] 600 mg-10 mcg (400 unit) Tablet
1 tab PO DAILY
Xtandi 40 mg Capsule
80 mg PO DAILY
acetaminophen 650 mg tablet extended release
650 mg PO Q8H Qty: 20 0RF
hydroxychloroquine 200 MG tablet
200 mg PO BID
Referrals:
Kapil Greco CRNP [Family Provider, Family Practice]
Interventions
Interventions:
*Risk Screen - Suicide Last Done: 08/17/25 11:50
*General Assessment Last Done: 08/17/25 11:53
*Neglect/Abuse Screening Last Done: 08/17/25 11:50
*ED COVID-19 Vaccine History Last Done: 08/17/25 11:49
*ED Influenza Vaccine History Last Done: 08/17/25 11:49
[facility] Fall Risk Assessment Tool Last Done: 08/17/25 13:26
Discharge Date and Time
Print Language: MARTINIQUAIS
[2025-08-17 14:00] VITALS: BP 143/71
--- NOTE | 2025-08-17 14:01 | HPS.HSE ---
Addendum entered and electronically signed by Janine Haile MD 08/17/25 14:41:
Attending�addendum:
I saw and evaluated the patient independently. I reviewed and discussed the resident�s note and agree with findings and plan as documented in the resident�s note.� patient is 85 years old with a history of metastatic bladder cancer, Alzheimer
dementia, hypertension, hyperlipidemia, rheumatoid arthritis who came to the ER status post fall.
Patient was walking outside the house and tripped over a curb, denies head trauma or loss of consciousness.
Landed on his left side but was not able to get up from the ground, and was over there for 1 hour, patient reports left hip pain, but does not denies any chest pain or shortness of breath, no abdominal pain, no nausea, no vomiting, no diarrhea or
constipation.
Patient noted to be hypothermic in the ER.
Physical�exam:
GENERAL : Patient is awake, alert, but not fully oriented.
HEENT: Nonicteric sclerae, PERRLA, EOMI. Oropharynx clear. Moist mucous membranes. Conjunctivae appear well perfused.
CHEST: Chest wall is nontender.
HEART: Regular rate and rhythm without murmurs.
LUNGS: Clear to auscultation bilaterally.
ABDOMEN: Soft, positive bowel sounds, nontender, no organomegaly.
RECTAL: Deferred.
MUSCLES/EXTREMITIES: Left hip tender.
NEUROLOGIC: Cranial nerves II-XII intact without motor/sensory deficit.
�
Assessment/plan:
Status post fall with left intertrochanteric fracture.
Discussed with Ortho surgery
Concern if patient hypothermic, need to optimize medical therapy before surgery.
Tentatively on Tuesday
Cardiac clearance
Hypothermia.
Possible secondary to prolonged cold exposure outside
Continue Eduarda hugger
History of rheumatoid arthritis.
Continue home meds in form of prednisone and hydroxychloroquine
Hypertension/Alzheimer dementia/GERD.
Continue home meds
�
Total time spent on today�s encounter was 75 minutes which included time spent in counseling the patient/family regarding diagnosis and treatment plan as listed above, goals of care, and symptom management. Case was discussed with nursing staff,
specialists, and care coordinators/case management. All labs and imaging personally reviewed by me. Remainder the time spent in detailed review of previous records, lab data, imaging, and other medical provider documentation.
Original Note:
Family Physician
-
Family Physician: ANDREW Mercado
Chief Complaint
-
fall
History of Present Illness
85 year old male with history of prostate cancer, metastatic bladder cancer , Alzhiemer's dementia, HLD, hFREF, HTN, rheumatoid arthritis on hydroxychloroquine and low prednisone presents after fall. Patient was walking outside the house and
tripped over a curb. He did not hit his head or lose consciousness. He landed on his left side. He was unable to get up from the ground and was over there for an hour. He reports of left hip pain. On arrival to the ED his temperature was 94.4
�F. He denies chest pain, shortness of breath, headache, vision loss, palpitations, nausea, vomiting. Patient is not on any blood thinners.
Medical History
Past Medical History
Past Medical History: Reports Other (prostate cancer, metastatic bladder cancer , Alzhiemer's dementia, HLD, hFREF, HTN, rheumatoid arthritis)
Past Surgical History: Reports Other
Social History
Tobacco: Smoker
Alcohol: Occasional
Drug: None
Personal: Single
Employment: Retired
Family History
Family History: Not pertinent
Allergies / Home Medications
Allergies reflects when Allergies were last updated in [employer].
Home Medications with original date entered in [employer]
Allergy/Medication List:
Allergies
Allergy/AdvReac Type Severity Reaction Status Date / Time
penicillin V (Penicillin V) Allergy patient Verified 11/14/24 13:14
states
this was
many years
ago
Home Medications
hydroxychloroquine 200 mg tablet 200 mg PO BID Autoimmune disorder 10/03/19
aspirin 81 mg tablet,delayed release 81 mg PO DAILY Blood clot prevention/tx 03/27/20
prednisone 2.5 mg tablet 2.5 mg PO DAILY Anti-inflammatory 03/27/20
rosuvastatin 10 mg tablet 10 mg PO DAILY High cholesterol 03/27/20
spironolactone 50 mg tablet 25 mg PO DAILY Fluid retention/Swelling 03/27/20
vit C 250 mg-vit E 90 mg-zinc 40 mg-copper 1 [id number] capsule (PreserVision AREDS-2) 1 cap PO DAILY Supplement 03/27/20
amlodipine 5 mg tablet 5 mg PO DAILY Blood pressure 05/17/22
lansoprazole 15 mg capsule,delayed release 15 mg PO DAILY Gastrointestinal issue 05/17/22
lisinopril 40 mg tablet 40 mg PO DAILY Blood pressure 05/17/22
calcium 600 mg (as carbonate)-vitamin D3 10 mcg (400 unit) tablet (Calcium 600 + D(3)) 1 tab PO DAILY 11/14/24
enzalutamide 40 mg capsule (Xtandi) 80 mg PO DAILY 11/14/24
memantine 5 mg tablet 5 mg PO DAILY 11/14/24
metoprolol succinate 50 mg tablet,extended release 24 hr 25 mg PO BID 11/14/24
acetaminophen 650 mg tablet,extended release 650 mg PO Q8H #20 tabs 11/16/24
Review of Systems
-
History Source: Patient and Family
A 12 point ROS was completed and negative except as noted: Yes
Physical Exam
Vital Signs
Vital Signs
Temp Pulse Resp BP Pulse Ox
94.4 F L 60 11 173/80 94
08/17/25 11:33 08/17/25 13:04 08/17/25 13:04 08/17/25 11:33 08/17/25 13:04
Physical Exam
General: Comfortable and Conversant
HEENT: NormoCephalic and Anicteric
Respiratory: Clear
Cardiac: S1/S2 and Regular Rhythm
GI: Soft, Non Tender, Non Distended and Normal Bowel Sounds
Musculoskeletal: Other (Left leg pain with any movement, with abrasion on left elbow seen, no other obvious injuries.)
Skin: Warm and Dry
Neuro: AO x 3
Psych: Calm
Data Reviewed
-
Diagnostic Radiology: Report Reviewed by me and Discussed with Physician
Lab Data: Labs Reviewed by me and Discussed with Physician
Impression/Plan
-
IMPRESSION:
Left hip intertrochanteric fracture
History of rheumatoid arthritis
Essential hypertension
History of GERD
Alzheimer's dementia
History of metastatic bladder cancer
History of prostate cancer
PLAN:
Left hip intertrochanteric fracture
Mechanical fall
Hemodynamically stable
Oral temperature 94 F on arrival to ED
Consult orthopedics
Pain control, non weight bearing
Warming blanket/hugger
On a pacemaker-- consult cards for preoperative clearance.
PT/OT post surgery
Not on AC
Continue all home medication except Xtandi and ASA prior surgery
#Hip X ray shows Possible nondisplaced left intertrochanteric hip fracture. Possible right subcapital hip fracture.
History of rheumatoid arthritis
Continue low dose prednisone and hydroxychloroquine
Essential hypertension
Continue all home medication
Monitor BP.
History of GERD
Continue PPI
Alzheimer's dementia
Continue memantine
History of metastatic bladder cancer
History of prostate cancer
Hold Xtandi and ASA
Current smoker.
DNR
SCD
Regular diet
[2025-08-17] MEDS: TYLENOL 650 MG PO ×2 (14:46→22:30)
--- NOTE | 2025-08-17 14:46 | EDCM ---
Reviewed chart, pt was found down outside his home this morning. Found to have L hip fracture. He has a history of dementia, sleep apnea, CAD, HTN, bladder cancer and sick sinus syndrome requiring pacemaker insertion.
Unable to speak to pt and family not at bedside. Information obtained from last admission in November 2024.
Lives with daughter in [address], [address]. 12 steps to second floor.
Pt is independent in ADLs, personal care and ambulation, has RW.
Hx [facility]
PCP: Tomy Gil
Pharmacy: [facility]
CM will continue to follow for all discharge planning needs.
[2025-08-17 15:02] VITALS: BP 100/60
[2025-08-17 15:16] LABS: Hematocrit 38.4 % (39.0-52.0); Hemoglobin 12.6 g/dL (13.0-18.0); Mean Corp Hgb Conc. 32.8 g/dL (33.0-37.0); Mean Corpuscular Volume 92.3 fL (80.0-94.0); Nucleated Red Blood Cells % 0 % (-); Platelet Count 192 10^3/uL (130-400); Red Cell Dist. Width 14.8 % (11.5-14.5)
[2025-08-17 15:37] LABS: ALT (SGPT) < 10 U/L (0-50); AST (SGOT) 18 U/L (17-59); Albumin 3.4 g/dl (3.5-5.0); Alkaline Phosphatase 147 U/L (38-126); Blood Urea Nitrogen 22 mg/dl (9-20); Calcium 9.0 mg/dl (8.4-10.2); Carbon Dioxide 25 mmol/L (22-30); Chloride 107 mmol/L (98-107); Estimated Creatinine Clearance 50 ml/min; Glucose 89 mg/dl (70-99); Potassium 4.6 mmol/L (3.5-5.1); Sodium 138 mmol/L (135-145); Total Protein 6.7 g/dl (6.3-8.2); eGFR > 60.00
[2025-08-17 16:53] VITALS: BP 154/81
[2025-08-17 17:00] VITALS: BMI 22.7
[2025-08-17] MEDS: NORVASC 5 MG PO (17:31)
[2025-08-17] MEDS: MORPHINE SULFATE 2 MG IV (17:31)
--- NOTE | 2025-08-17 17:52 | CON.CAR ---
Consultation
Consultation Request
Date/Time Consultation Requested: 08/17/25, 3pm
Date/Time Consultation Performed: 08/17/25, 4pm
Requesting Provider: Mic
Performing Provider: Angie
Reason for Consultation: pre op risk stratification
Medical History
-
Chief Complaint: fall outside, left hip fracture, hypothermia
History of Present Illness:
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
left hip facture. Of note, was stuck outside in cold after the fall, and is hypothermic on admission.
Past Medical History
Past Medical History: CAD, Cancer (prostate), HTN, Hypercholesterolemia and Other (ICM EF 40-45%)
Past Surgical History: Cholecystectomy and Other (dual chamber PPM)
Social History
Tobacco: Former Smoker
Family History
Family History: Early CAD (none)
Allergies / Home Medications
Allergy/AdvReac Type Severity Reaction Status Date / Time
penicillin V (Penicillin V) Allergy patient Verified 11/14/24 13:14
states
this was
many years
ago
�Medication �Instructions �Recorded �Confirmed �Type
hydroxychloroquine 200 mg tablet 400 mg PO DAILY RHEUMATOID 10/03/19 08/17/25 History
ARTHRITIS
aspirin 81 mg tablet,delayed 81 mg PO DAILY Blood clot 03/27/20 08/17/25 History
release prevention/tx
prednisone 2.5 mg tablet 2.5 mg PO DAILY Anti-inflammatory 03/27/20 08/17/25 History
rosuvastatin 10 mg tablet 10 mg PO DAILY High cholesterol 03/27/20 08/17/25 History
spironolactone 50 mg tablet 25 mg PO DAILY Fluid 03/27/20 08/17/25 History
retention/Swelling
vit C 250 mg-vit E 90 mg-zinc 40 1 cap PO DAILY Supplement 03/27/20 08/17/25 History
mg-copper 1 [id number]
capsule (PreserVision AREDS-2)
amlodipine 5 mg tablet 5 mg PO DAILY Blood pressure 05/17/22 08/17/25 History
lansoprazole 15 mg capsule,delayed 15 mg PO DAILY Gastrointestinal 05/17/22 08/17/25 History
release issue
lisinopril 40 mg tablet 40 mg PO DAILY Blood pressure 05/17/22 08/17/25 History
calcium 600 mg (as 1 tab PO DAILY Supplement 11/14/24 08/17/25 History
carbonate)-vitamin D3 10 mcg (400
unit) tablet (Calcium 600 + D(3))
enzalutamide 40 mg capsule (Xtandi) 80 mg PO DAILY Cancer 11/14/24 08/17/25 History
memantine 5 mg tablet 5 mg PO DAILY Neurological 11/14/24 08/17/25 History
Condition
metoprolol succinate 50 mg 50 mg PO DAILY Blood Pressure 11/14/24 08/17/25 History
tablet,extended release 24 hr
Review of Systems
-
History Source: Patient
All other systems: Negative unless noted
Musculoskeletal: Joint Pain and Muscle Pain
Physical Exam
Vital Signs
Temp Pulse Resp BP Pulse Ox
98.1 F 71 16 154/81 95
08/17/25 16:53 08/17/25 17:31 08/17/25 16:53 08/17/25 17:31 08/17/25 16:53
Lab Results
08/17/25 14:46
08/17/25 14:46
Physical Exam
General: Well Developed and Well Nourished
HEENT: Anicteric
Respiratory: Clear and Non Labored Respirations
Cardiac: S1/S2 (normal), Regular Rhythm, Murmur (none) and Peripheral Edema (none)
Musculoskeletal: No Clubbing, No Cyanosis and No Edema
Skin: Warm and Dry
Neuro: AO x 3
Psych: Calm
Impression / Plan
-
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
left hip facture. We are consulted for pre-operative risk assessment.
# Pre op risk assessment: Left hip intertrochanteric fracture
-patient is high risk due to age, but is compensated/optimized from cardiac perspective
-Toprol XL should not be interrupted
-no coronary stents: ASA 81mg can be held if necessary
# CAD
-stable, no angina
-takes ASA 81mg and rosuvastatin 10mg as outpatient
# ICM EF 40-45%
-echo 02/2024: EF 40-45%, mild AR
-no evidence of HF
-cont Toprol XL 25mg bid, lisinopril 40mg daily, aldactone 25mg daily
# HTN
-BP elevated after his hip fracture
-trend, and continue home meds above for GDMT, as well as amlodipine 5mg daily
# PPM: MDT dual chamber
-stable on tele
Data Reviewed
-
EKG: Tracing Personally Visualized and interpreted (AV paced)
Medical Tests (Nuc Med, Echo etc): Report Reviewed by me (echo per note)
Labs: Labs Reviewed by me
[2025-08-17] MEDS: TOPROL XL 25 MG PO (19:45)
[2025-08-17] MEDS: SENOKOT-S 1 TABLET PO (20:10)
[2025-08-17 23:44] VITALS: BP 112/64
[2025-08-18 07:21] VITALS: BP 126/70
[2025-08-18 07:24] LABS: Hematocrit 35.2 % (39.0-52.0); Hemoglobin 11.4 g/dL (13.0-18.0); Mean Corp Hgb Conc. 32.4 g/dL (33.0-37.0); Mean Corpuscular Volume 92.1 fL (80.0-94.0); Nucleated Red Blood Cells % 0 % (-); Platelet Count 187 10^3/uL (130-400); Red Cell Dist. Width 15.0 % (11.5-14.5)
[2025-08-18 08:00] LABS: Blood Urea Nitrogen 21 mg/dl (9-20); Calcium 8.7 mg/dl (8.4-10.2); Carbon Dioxide 25 mmol/L (22-30); Chloride 103 mmol/L (98-107); Estimated Creatinine Clearance 51 ml/min; Glucose 89 mg/dl (70-99); Potassium 4.4 mmol/L (3.5-5.1); Sodium 135 mmol/L (135-145); eGFR > 60.00
[2025-08-18] MEDS: NORVASC 5 MG PO (08:06)
[2025-08-18] MEDS: CRESTOR 10 MG PO (08:06)
[2025-08-18] MEDS: TYLENOL 650 MG PO ×3 (08:07→21:23)
[2025-08-18] MEDS: TOPROL XL 25 MG PO ×2 (08:07→21:22)
[2025-08-18] MEDS: NAMENDA 5 MG PO (08:08)
[2025-08-18] MEDS: ZESTRIL 40 MG PO (08:08)
--- NOTE | 2025-08-18 08:12 | W.PN.HOSP.TC ---
Today's Communication/Plan
-
Continue pain control.
N.p.o. after midnight
Assessment / Plan
Assessment / Plan
Impression:
85 years old with a history of metastatic bladder cancer, Alzheimer dementia, hypertension, hyperlipidemia, rheumatoid arthritis who came to the ER status post fall.
Patient was walking outside the house and tripped over a curb, denies head trauma or loss of consciousness.
Landed on his left side but was not able to get up from the ground, and was over there for 1 hour, patient reports left hip pain, but does not denies any chest pain or shortness of breath, no abdominal pain, no nausea, no vomiting, no diarrhea or
constipation.
Patient noted to be hypothermic in the ER.
Hypothermia improved.
Orthopedic consulted.
Cardiology consulted for preoperative clearance.
Plan for or Tuesday
Assessment/plan:
Status post fall with left Hip Intertrochanteric Fracture
Mechanical fall; patient hemodynamically stable.
Oral temperature on arrival: 94�F, resolved.
Hip X-ray: possible nondisplaced left intertrochanteric fracture; possible right subcapital fracture.
CT pelvis shows:
Acute comminuted left intertrochanteric hip fracture.
Few blastic osseous lesions consistent with osseous metastatic disease. Stable.
Improved pelvic lymphadenopathy
Consulted orthopedics for surgical management.
Continue pain control; maintain mog-wibhvv-diwxnzd status.
Pacemaker in place , consulted cardiology for preoperative clearance.
PT/OT post-surgery.
Not on anticoagulation.
Continue all home medications except Xtandi and ASA prior to surgery.
Orthopedic recommending obtain dictated left femur x-ray to rule out static lesion on left femur.
X-ray shows:
1. ACUTE NONDISPLACED INTERTROCHANTERIC FRACTURE of the LEFT PROXIMAL FEMUR.
2. Mild osteoarthritis in the left hip.
3. Severe osteoarthritis in the right hip.
4. 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
5. Severe bilateral facet joint arthrosis at L4/L5.
6. 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
7. Diffuse bone demineralization.
8. Previous total prostatectomy.
- Plan for or Sunday 05/20
Rheumatoid Arthritis
Continue low-dose prednisone and hydroxychloroquine.
Essential Hypertension
Continue all home medications.
Monitor blood pressure.
GERD
Continue PPI.
Alzheimer�s Dementia
Continue memantine.
History of Metastatic Bladder Cancer & Prostate Cancer
Hold Xtandi
CODE STATUS: DNR status.
DVT prophylaxis sequential compression device (SCD) for DVT prophylaxis.
Diet: Regular diet, n.p.o. after midnight
Disposition: Continue pain control.
N.p.o. after midnight
Total time spent on today's encounter was 65 minutes which included time spent in counseling the patient/family regarding diagnosis and treatment plan as listed above, goals of care, and symptom management. Case was discussed with nursing staff,
specialists, and care coordinators/case management. All labs and imaging personally reviewed by me. Remainder the time spent in detailed review of previous records, lab data, imaging, and other medical provider documentation.
Anticipated Discharge: > 48 hours
Subjective/Interval History
-
Date of Service: August 18, 2025
Patient seen and examined at bedside, denies any chest pain or shortness of breath, complaining of left hip pain.
Objective Data
-
Labs:
Laboratory Results
08/18/25
06:08
WBC 7.1
Hgb 11.4 L
Hct 35.2 L
Plt Count 187
Sodium 135
Potassium 4.4
Chloride 103
Carbon Dioxide 25
BUN 21 H
Creatinine 0.9
Glucose 89
Calcium 8.7
Vital Signs:
Vital Signs
Temp Pulse Resp BP Pulse Ox
98.3 F 61 16 126/70 95
08/18/25 07:21 08/18/25 07:21 08/18/25 07:21 08/18/25 07:21 08/18/25 07:21
I&O
08/17/25 08/18/25 08/19/25
06:59 06:59 06:59
Intake Total 440 / 440
Balance 440 / 440
Physical Exam
-
General: Well Developed, Well Nourished, No Apparent Distress and Comfortable
HEENT: Normocephalic, Atraumatic, Moist Mucous Membranes, No Ptosis, PERRLA and Nose Appears Normal
Respiratory: Clear to Auscultation and Non Labored Respirations
Cardiac: Regular Rhythm and S1/S2
Breast: Deferred by me
GI: Soft, Nontender, Nondistended and Normal Bowel Sounds
Genito-urinary: No Costovertebral Tender
Musculoskeletal: Other (Left hip tender)
Skin: Warm
Neuro: Awake, Alert, Oriented, AO x 3 and No Motor Deficits
Psych: Calm
Data Reviewed
-
Diagnostic Radiology: Image personally visualized and interpreted and Report Reviewed by me
CT Scan: Image personally visualized and interpreted and Report Reviewed by me
Ultrasound: Image personally visualized and interpreted and Report Reviewed by me
MRI: Image personally visualized and interpreted and Report Reviewed by me
Medical Tests (Nuc Med, Echo etc): Image personally visualized and interpreted and Report Reviewed by me
Labs: Labs Reviewed by me
Old Records: Reviewed
[2025-08-18] MEDS: OCUVITE SOFTGEL 1 CAP PO (08:13)
[2025-08-18] MEDS: ALDACTONE 25 MG PO (08:13)
[2025-08-18] MEDS: PROTONIX 20 MG PO (08:13)
[2025-08-18] MEDS: DELTASONE 2.5 MG PO (08:13)
[2025-08-18] MEDS: OSCAL 500 + D 500 MG PO (08:24)
--- NOTE | 2025-08-18 09:54 | W.PN.CD ---
Today's Communication / Plan
-
medically optimized from cardiac perspective for OR tomorrow
post op tele
Impression / Plan
-
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
left hip facture. We are consulted for pre-operative risk assessment.
# Pre op risk assessment: Left hip intertrochanteric fracture
-patient is high risk due to age, but is compensated/optimized from cardiac perspective
-Toprol XL should not be interrupted
-no coronary stents: ASA 81mg can be held if necessary
# CAD
-stable, no angina
-takes ASA 81mg and rosuvastatin 10mg as outpatient
# ICM EF 40-45%
-echo 02/2024: EF 40-45%, mild AR
-no evidence of HF
-cont Toprol XL 25mg bid, lisinopril 40mg daily, aldactone 25mg daily
# HTN
-BP elevated after his hip fracture
-trend, and continue home meds above for GDMT, as well as amlodipine 5mg daily
# PPM: MDT dual chamber
-stable EKG
Physical Exam
Vital Signs/Labs
Vital Signs
Temp Pulse Resp BP Pulse Ox
98.3 F 61 16 126/70 95
08/18/25 07:21 08/18/25 08:13 08/18/25 07:21 08/18/25 08:13 08/18/25 07:21
08/17/25 08/18/25 08/19/25
06:59 06:59 06:59
Actual Weight 61.9 kg
08/18/25 06:08
08/18/25 06:08
Physical Exam
Constitutional: No acute distress and Comfortable
EENT: Moist mucous membranes
Cardiovascular: Rhythm & rate is regular, Pedal edema is absent, JVD pressure is normal and Systolic murmur present
Respiratory: Respiratory effort normal and Lungs clear to auscul.
Neuro/Psych: AO x 3
Data Reviewed
-
Date of Service: August 18, 2025
EKG: Other
Labs: Labs Reviewed by me
--- NOTE | 2025-08-18 10:29 | CON.ORTHO ---
Consultation
-
Date/Time Consultation Requested: 08/17/25
Date/Time Consultation Performed: 08/18/25
Requesting Provider: Dr. Guerra
Performing Provider: Olivia Burgess PA-C, for Dr. Moira Johnson
Reason for Consultation: Left hip intertrochanteric fracture
Consultation - Orthopedics
History
HPI: This is an 85-year-old male who presented to [facility] emergency department after sustaining 2 reported falls and then remaining on the ground outside for over an hour. He has a history of dementia, but was able to answer questions
appropriately and remainder of history was obtained through chart review. In the emergency department, he was hypothermic and noted to have a temperature of 94 �F and a Eduarda hugger was placed to elevate his temperature. Pelvis and left hip x-rays
demonstrated a minimally displaced intertrochanteric fracture. There was concern for possible right subcapital fracture, but he was only reporting left hip pain. On exam today, he seems relatively comfortable, but does have some discomfort about
the left hip. He denies any numbness or tingling of his left lower extremity. Of note, he did have a greater trochanter avulsion fracture back in November of this year that was treated nonoperatively. He does have a history of metastatic bladder
cancer as well as sick sinus syndrome for which he has a pacemaker. Our orthopedic specialty was consulted and to discuss definitive management of his left hip fracture going forward.
Medical History
Past Medical History
Past Medical History: Reports Other (prostate cancer, metastatic bladder cancer , Alzhiemer's dementia, HLD, hFREF, HTN, rheumatoid arthritis)
Past Surgical History: Reports prostatectomy, TURBT
Social History
Tobacco: Smoker
Alcohol: Occasional
Drug: None
Personal: Single
Employment: Retired
Lives at home with daughter in 2 story home per chart review
Family History
Family History: Not pertinent
Review of systems
unable to obtain secondary to dementia history
Allergies / Home Medications
Allergy/AdvReac Type Severity Reaction Status Date / Time
penicillin V (Penicillin V) Allergy patient Verified 11/14/24 13:14
states
this was
many years
ago
�Medication �Instructions �Recorded
hydroxychloroquine 200 mg tablet 400 mg PO DAILY RHEUMATOID 10/03/19
ARTHRITIS
aspirin 81 mg tablet,delayed 81 mg PO DAILY Blood clot 03/27/20
release prevention/tx
prednisone 2.5 mg tablet 2.5 mg PO DAILY Anti-inflammatory 03/27/20
rosuvastatin 10 mg tablet 10 mg PO DAILY High cholesterol 03/27/20
spironolactone 50 mg tablet 25 mg PO DAILY Fluid 03/27/20
retention/Swelling
vit C 250 mg-vit E 90 mg-zinc 40 1 cap PO DAILY Supplement 03/27/20
mg-copper 1 [id number]
capsule (PreserVision AREDS-2)
amlodipine 5 mg tablet 5 mg PO DAILY Blood pressure 05/17/22
lansoprazole 15 mg capsule,delayed 15 mg PO DAILY Gastrointestinal 05/17/22
release issue
lisinopril 40 mg tablet 40 mg PO DAILY Blood pressure 05/17/22
calcium 600 mg (as 1 tab PO DAILY Supplement 11/14/24
carbonate)-vitamin D3 10 mcg (400
unit) tablet (Calcium 600 + D(3))
enzalutamide 40 mg capsule (Xtandi) 80 mg PO DAILY Cancer 11/14/24
memantine 5 mg tablet 5 mg PO DAILY Neurological 11/14/24
Condition
metoprolol succinate 50 mg 50 mg PO DAILY Blood Pressure 11/14/24
tablet,extended release 24 hr
Vital Signs / Lab Results
Temp Pulse Resp BP Pulse Ox
98.3 F 61 16 126/70 95
08/18/25 07:21 08/18/25 08:13 08/18/25 07:21 08/18/25 08:13 08/18/25 07:21
08/18/25 06:08
08/18/25 06:08
Physical examination:
General: Well-developed, well-nourished male in mild distress at rest. Oriented to self and able to answer questions appropriately, but does seem somewhat confused.
HEENT: Atraumatic, normocephalic, neck supple.
Lungs: Nonlabored breathing on room air. No audible wheezing.
Heart: Pacemaker present.
Left hip: Tenderness to palpation about the lateral hip. Mild diffuse swelling. Logroll positive for pain. Range of motion not tested due to known fracture. Calf soft and nontender to palpation. Able to dorsiflex and plantarflex the ankle
without difficulty. Neurovascular intact distally.
Radiographic studies:
X-rays of the left hip show severe diffuse joint space narrowing of the bilateral hips as well as mild acetabular sclerosis. There is a nondisplaced left intertrochanteric hip fracture. The right femoral neck is shortened with a transverse
sclerotic line through the femoral neck so subcapital right hip fracture cannot be excluded. There is bony demineralization.
CT scan of the pelvis confirms an acute comminuted left intertrochanteric hip fracture. No right hip fracture, femoral neck is short but stable. Severe atherosclerotic vascular disease and postsurgical changes noted in the pelvis. There is a
round sclerotic region of the upper sacrum and left iliac bone, stable in comparison to previous imaging. Improved pelvic lymphadenopathy.
X-rays of the left femur show acute nondisplaced intertrochanteric fracture of the left proximal femur. 5.4 cm blastic osseous metastasis in the left iliac bone. Enchondroma of distal femur, no periosteal thinning.
Assessment / Plan
Assessment: Left intertrochanteric hip fracture.
Plan: Patient was seen in tandem with Dr. Johnson who was present to discuss treatment recommendations going forward. I did attempt to call his daughter, Nidia, who is his primary contact on file and I presume his medical POA. She unfortunately
did not answer so I left a message to return my call. Franco has a very complex medical history, extensive cardiac issues, was found to be hypothermic upon arrival to the emergency department, and has a history of metastatic bladder cancer with
multiple bony lesions about the pelvic region. Ideally, his left hip will be fixed with an open reduction, internal fixation of the left proximal femur with a gamma nail. He has received both medical and cardiac optimization, however, remains at
extremely high risk to proceed with the procedure. However, the risks are significantly outweighed by the benefits of fixation and return to baseline ambulation and independence. The plan will be to proceed with surgery under the direction of "Donell"Alex tomorrow, 08/19/2025 pending or availability. He will be n.p.o. after midnight tonight. IV antibiotics are on-call to the operating room. He will remain nonweightbearing and on bedrest until surgery is performed. I will continue to
reach out to Nidia to ensure appropriate consent is obtained and significant risks of the procedure outlined.
Both myself and Dr. Johnson were able to review the current situation and recommendations with Nidia France, thaddeus POKim. She provided consent to proceed with surgery over the phone for a left hip gamma nail with Dr. Johnson after discussing
risks, benefits, and recovery process. She would prefer rehab for him after surgery and case management will further discuss this going forward. All questions were answered Nidia was in agreement with treatment recommendations.
[2025-08-18] MEDS: MIRALAX 17 GRAMS PO (12:24)
[2025-08-18 15:00] VITALS: BP 110/67
[2025-08-18 23:06] VITALS: BP 141/83
[2025-08-19] VITALS (14 sets, daily range): BP systolic 100–192; BP diastolic 25–102; BMI 22.4; BMI 22.7
[2025-08-19 07:30] LABS: Hematocrit 36.2 % (39.0-52.0); Hemoglobin 11.5 g/dL (13.0-18.0); Mean Corp Hgb Conc. 31.8 g/dL (33.0-37.0); Mean Corpuscular Volume 92.8 fL (80.0-94.0); Platelet Count 182 10^3/uL (130-400); Red Cell Dist. Width 15.1 % (11.5-14.5)
[2025-08-19] MEDS: CRESTOR 10 MG PO (08:11)
[2025-08-19] MEDS: TOPROL XL 25 MG PO ×2 (08:11→20:45)
[2025-08-19] MEDS: OSCAL 500 + D 500 MG PO (08:11)
[2025-08-19] MEDS: NORVASC 5 MG PO (08:11)
[2025-08-19] MEDS: TYLENOL 650 MG PO ×2 (08:11→21:45)
[2025-08-19] MEDS: DELTASONE 2.5 MG PO (08:11)
[2025-08-19] MEDS: OCUVITE SOFTGEL 1 CAP PO (08:11)
[2025-08-19] MEDS: ALDACTONE 25 MG PO (08:11)
[2025-08-19] MEDS: PROTONIX 20 MG PO (08:11)
[2025-08-19] MEDS: NAMENDA 5 MG PO (08:11)
[2025-08-19] MEDS: ZESTRIL 40 MG PO (08:12)
--- NOTE | 2025-08-19 08:14 | W.PN.UPDATE ---
Update Note
Progress Note Update
85F plan for or today for left hip cephalomedullary nail fixation with Dr. Johnson
- Preoperative orders of antibiotics in place
- N.p.o.
- Continue nonweightbearing of left lower extremity; will update orders postoperatively
- Consent on file
- Type and screen on file
[2025-08-19 08:17] LABS: Blood Urea Nitrogen 25 mg/dl (9-20); Calcium 8.8 mg/dl (8.4-10.2); Carbon Dioxide 27 mmol/L (22-30); Chloride 105 mmol/L (98-107); Estimated Creatinine Clearance 51 ml/min; Glucose 79 mg/dl (70-99); Potassium 4.6 mmol/L (3.5-5.1); Sodium 138 mmol/L (135-145); eGFR > 60.00
--- NOTE | 2025-08-19 08:31 | W.PN.HOSP.TC ---
Today's Communication/Plan
-
NPO for OR
Assessment / Plan
Assessment / Plan
Impression:
85 years old with a history of metastatic bladder cancer, Alzheimer dementia, hypertension, hyperlipidemia, rheumatoid arthritis who came to the ER status post fall.
Patient was walking outside the house and tripped over a curb, denies head trauma or loss of consciousness.
Landed on his left side but was not able to get up from the ground, and was over there for 1 hour, patient reports left hip pain, but does not denies any chest pain or shortness of breath, no abdominal pain, no nausea, no vomiting, no diarrhea or
constipation.
Patient noted to be hypothermic in the ER.
Hypothermia improved.
Orthopedic consulted.
Cardiology consulted for preoperative clearance.
Assessment/plan:
Status post fall with left Hip Intertrochanteric Fracture
Mechanical fall; patient hemodynamically stable.
Oral temperature on arrival: 94�F, resolved.
Hip X-ray: possible nondisplaced left intertrochanteric fracture; possible right subcapital fracture.
CT pelvis shows:
Acute comminuted left intertrochanteric hip fracture.
Improved pelvic lymphadenopathy
Consulted orthopedics for surgical management.
Continue pain control; maintain qem-isnten-kxzkaqu status.
Pacemaker in place , consulted cardiology - patient medically optimized
PT/OT post-surgery.
Not on anticoagulation.
Continue all home medications except Xtandi and ASA prior to surgery.
Orthopedic recommending obtain dictated left femur x-ray to rule out static lesion on left femur.
X-ray shows:
1. ACUTE NONDISPLACED INTERTROCHANTERIC FRACTURE of the LEFT PROXIMAL FEMUR.
2. Mild osteoarthritis in the left hip.
3. Severe osteoarthritis in the right hip.
4. 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
5. Severe bilateral facet joint arthrosis at L4/L5.
6. 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
7. Diffuse bone demineralization.
8. Previous total prostatectomy.
- Plan for or Sunday 08/19; NPO after MN
Rheumatoid Arthritis
Continue low-dose prednisone and hydroxychloroquine.
Essential Hypertension
Continue all home medications: Lisinopril, Amlodipine, Metoprolol
Monitor blood pressure.
GERD
Continue PPI.
Alzheimer�s Dementia
Continue memantine.
History of Metastatic Bladder Cancer & Prostate Cancer
Hold Xtandi
CODE STATUS: DNR status.
DVT prophylaxis sequential compression device (SCD) for DVT prophylaxis.
Diet: Regular diet, n.p.o. after midnight
Disposition: Continue pain control.
N.p.o. after midnight
Total time spent on today's encounter was 65 minutes which included time spent in counseling the patient/family regarding diagnosis and treatment plan as listed above, goals of care, and symptom management. Case was discussed with nursing staff,
specialists, and care coordinators/case management. All labs and imaging personally reviewed by me. Remainder the time spent in detailed review of previous records, lab data, imaging, and other medical provider documentation.
Anticipated Discharge: 24 - 48 hours
Subjective/Interval History
-
Date of Service: August 19, 2025
feeling ok
no chest pain or shortness of breath
left hip discomfort
Objective Data
-
Labs:
Laboratory Results
08/19/25
06:31
WBC 8.8
Hgb 11.5 L
Hct 36.2 L
Plt Count 182
Sodium 138
Potassium 4.6
Chloride 105
Carbon Dioxide 27
BUN 25 H
Creatinine 0.9
Glucose 79
Calcium 8.8
Vital Signs:
Vital Signs
Temp Pulse Resp BP Pulse Ox
98.2 F 62 18 192/102 98
08/19/25 08:05 08/19/25 08:05 08/19/25 08:05 08/19/25 08:05 08/19/25 08:05
I&O
08/18/25 08/19/25 08/20/25
06:59 06:59 06:59
Intake Total 440 / 440 960 / 960
Output Total 795 / 795
Balance 440 / 440 165 / 165
Review of Systems
-
History Source: Patient
All other systems: Reviewed and negative
Physical Exam
-
General: Well Developed, Well Nourished, No Apparent Distress and Comfortable
HEENT: Normocephalic, Atraumatic, Moist Mucous Membranes, No Ptosis, PERRLA and Nose Appears Normal
Respiratory: Clear to Auscultation and Non Labored Respirations
Cardiac: Regular Rhythm and S1/S2
Breast: Deferred by me
GI: Soft, Nontender, Nondistended and Normal Bowel Sounds
Genito-urinary: No Costovertebral Tender
Musculoskeletal: Other (Left hip tender)
Skin: Warm
Neuro: Awake, Alert, Oriented, AO x 3 and No Motor Deficits
Psych: Calm
Data Reviewed
-
Diagnostic Radiology: Report Reviewed by me
Labs: Labs Reviewed by me
--- NOTE | 2025-08-19 11:58 | PN.CDI ---
CDI
- -
CDI:
Physician Documentation Request
Admit Date: 08/17/25 14:42
Dear Doctor Vazquez,
Clinical Indicators:
Patient admitted with Left Hip Intertrochanteric Fracture; PMH includes metastatic bladder cancer.
08/17 H & P, 'Patient was walking outside the house and tripped over a curb...'
08/18 Left Femur X Ray, '5.4 cm BLASTIC OSSEOUS METASTASIS in the left acetabulum.'
Please clarify the etiology of the left femur fracture:
Due to a combination of trauma and a pathological process but the trauma alone would not likely have been sufficient to cause the fracture
Traumatic fracture
Pathologic fracture due to neoplastic disease
Other
Use of terms such as suspected, likely, concern for, or probable (associated with a specific diagnosis that is being evaluated, monitored, or treated as if it exists) are acceptable and can be coded in the inpatient setting, when documented at the
time of discharge.
Thank you,
ADY Ash RN
CDI Specialist
available via tiger text
Please use your independent medical judgment in providing your response.
--- NOTE | 2025-08-19 12:07 | PN.CDI ---
CDI
- -
CDI:
Physician Documentation Request
Admit Date: 08/17/25 14:42
Dear Doctor Vazquez,
Clinical Indicators:
Patient admitted with Left Hip Intertrochanteric Fracture.
08/17 H & P includes history of HFrEF
08/17 Cardiology consult, 'ICM EF 40-45%'
Home medications include: Toprol, Linsinopril, Aldactone
Due to potentially conflicting documentation, could you clarify in the progress notes, the appropriate diagnosis, that supports the above abnormalities and additional evaluation, monitoring and/or treatment rendered:
Chronic HFrEF
Ischemic Cardiomyopathy only
Other, please specify
Use of terms such as suspected, likely, concern for, or probable (associated with a specific diagnosis that is being evaluated, monitored, or treated as if it exists) are acceptable and can be coded in the inpatient setting, when documented at the
time of discharge.
Thank you,
ADY Ash RN
CDI Specialist
available via tiger text
Please use your independent medical judgment in providing your response.
--- NOTE | 2025-08-19 14:47 | CM ---
Chart reviewed; anticipated discharge is 24-48 hours
Case Management will monitor for disposition needs when identified.
--- NOTE | 2025-08-19 15:31 | PTCARENOTE ---
Dr. Shukla made aware of hypertension. No new orders at this time. Monitoring continues.
[2025-08-19] MEDS: TYLENOL PO (16:00)
[2025-08-19] MEDS: NSS 1000 IV (20:45)
[2025-08-19] MEDS: COLACE 100 MG PO (20:45)
[2025-08-19] MEDS: ASPIRIN 325 MG PO (20:45)
[2025-08-19] MEDS: ANCEF 5 IV (20:45)
[2025-08-19] MEDS: SENOKOT 17.2 MG PO (21:45)
[2025-08-20] VITALS (7 sets, daily range): BP systolic 124–140; BP diastolic 66–82; PULSE 60; O2SAT 96
[2025-08-20] MEDS: ANCEF 5 IV (02:03)
--- NOTE | 2025-08-20 02:34 | PTCARENOTE ---
Recieved pt from pacu 1944 s/o orif gamma nail left hip, alert, oriented, vs stable, titrated o2 to 3l, 93-95 on 3l.iv changed by vat team due to leaking.
--- NOTE | 2025-08-20 06:09 | W.PN.ORTHO ---
Today's Communication / Plan
-
85M POD 1 L Hip CMN 08/19/[address] Johnson
- Weightbearing as tolerated to left extremity with assistive device
- PT/OT/discharge planning
- Maintain dressings for 7 to 10 days then may remove
- ASA 325mg once daily x 4 weeks for DVT prophylaxis
- Diet and pain regimen per primary team
Outpatient follow up 4 weeks date of surgery with Dr. Cronin for clinical exam and radiographs. Orthopedic surgery will continue to follow.
Assessment
.
Distal Motor Intact: Yes
Dressing:
Clean, dry and intact. Moderate central saturation of proximal bandage; appears stable.
Assessment:
POD #1 Left Hip CMN 08/19/[address] Johnson.
Plan
.
Surgery / Date: 08/19/2025 L [address]N with Dr. Johnson
DVT Prophylaxis: Aspirin
Activity:
Out of bed.
PT/OT
Discharge Plan: Other
Discharge Information:
Appreciate CM.
Subjective
.
.:
Patient resting comfortably.
Vital Signs and Labs
.
Vital Signs and Labs:
Temp Pulse Resp BP Pulse Ox
97.6 F 61 17 127/66 99
08/20/25 03:21 08/20/25 03:21 08/20/25 03:21 08/20/25 03:21 08/20/25 03:21
--- NOTE | 2025-08-20 07:22 | W.PN.HOSP.TC ---
Today's Communication/Plan
-
awaiting PT/OT evals
continue pain control
eventual SNF in 1-2 days
Assessment / Plan
Assessment / Plan
Impression:
85 years old with a history of metastatic bladder cancer, Alzheimer dementia, hypertension, hyperlipidemia, rheumatoid arthritis who came to the ER status post fall.
Patient was walking outside the house and tripped over a curb, denies head trauma or loss of consciousness.
Landed on his left side but was not able to get up from the ground, and was over there for 1 hour, patient reports left hip pain, but does not denies any chest pain or shortness of breath, no abdominal pain, no nausea, no vomiting, no diarrhea or
constipation.
Patient noted to be hypothermic in the ER.
Hypothermia improved.
Orthopedic consulted.
Cardiology consulted for preoperative clearance.
Assessment/plan:
Status post fall with left Hip Intertrochanteric Fracture
Fracture due to combination of trauma and pathologic fracture due to neoplastic disease, unclear if trauma alone would have caused fracture
Mechanical fall; patient hemodynamically stable.
Oral temperature on arrival: 94�F, resolved.
Hip X-ray: possible nondisplaced left intertrochanteric fracture; possible right subcapital fracture.
CT pelvis shows:
Acute comminuted left intertrochanteric hip fracture.
Improved pelvic lymphadenopathy
Consulted orthopedics for surgical management.
Continue pain control; maintain avg-jtsiyv-rfnnwoh status.
Pacemaker in place , consulted cardiology - patient medically optimized
PT/OT post-surgery.
Not on anticoagulation.
Continue all home medications except Xtandi and ASA prior to surgery; asa 325 started now for DVT PPx
Orthopedic recommending obtain dictated left femur x-ray to rule out static lesion on left femur.
X-ray shows:
1. ACUTE NONDISPLACED INTERTROCHANTERIC FRACTURE of the LEFT PROXIMAL FEMUR.
2. Mild osteoarthritis in the left hip.
3. Severe osteoarthritis in the right hip.
4. 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
5. Severe bilateral facet joint arthrosis at L4/L5.
6. 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
7. Diffuse bone demineralization.
8. Previous total prostatectomy.
- patient is s/p OR 08/19
- awaiting PT/OT evals
Rheumatoid Arthritis
Continue low-dose prednisone and hydroxychloroquine.
Essential Hypertension
Continue all home medications: Lisinopril, Amlodipine, Metoprolol
Monitor blood pressure.
GERD
Continue PPI.
Alzheimer�s Dementia
Continue memantine.
History of Metastatic Bladder Cancer & Prostate Cancer
Hold Xtandi
Heart Failure reduced EF
Ischemic Cardiomyopathy
CODE STATUS: DNR status.
DVT prophylaxis sequential compression device (SCD) for DVT prophylaxis.
Diet: Regular diet, n.p.o. after midnight
Disposition: Continue pain control.
N.p.o. after midnight
Total time spent on today's encounter was 65 minutes which included time spent in counseling the patient/family regarding diagnosis and treatment plan as listed above, goals of care, and symptom management. Case was discussed with nursing staff,
specialists, and care coordinators/case management. All labs and imaging personally reviewed by me. Remainder the time spent in detailed review of previous records, lab data, imaging, and other medical provider documentation.
Anticipated Discharge: 24 - 48 hours
Subjective/Interval History
-
Date of Service: August 20, 2025
feeling okay
currently pain free
no chest pain or shortness of breath
Objective Data
-
Labs:
Laboratory Results
08/20/25
06:00
WBC Pending
Hgb Pending
Hct Pending
Plt Count Pending
Sodium Pending
Potassium Pending
Chloride Pending
Carbon Dioxide Pending
BUN Pending
Creatinine Pending
Glucose Pending
Calcium Pending
Vital Signs:
Vital Signs
Temp Pulse Resp BP Pulse Ox
97.6 F 61 17 127/66 99
08/20/25 03:21 08/20/25 03:21 08/20/25 03:21 08/20/25 03:21 08/20/25 03:21
I&O
08/19/25 08/20/25 08/21/25
06:59 06:59 06:59
Intake Total 960 / 960 1060 / 1060
Output Total 795 / 795 900 / 900
Balance 165 / 165 160 / 160
Review of Systems
-
History Source: Patient
All other systems: Reviewed and negative
Physical Exam
-
General: Well Developed, Well Nourished, No Apparent Distress and Comfortable
HEENT: Normocephalic, Atraumatic, Moist Mucous Membranes, No Ptosis, PERRLA and Nose Appears Normal
Respiratory: Clear to Auscultation and Non Labored Respirations
Cardiac: Regular Rhythm and S1/S2
Breast: Deferred by me
GI: Soft, Nontender, Nondistended and Normal Bowel Sounds
Genito-urinary: No Costovertebral Tender
Musculoskeletal: No Edema
Skin: Warm
Neuro: Awake, Alert, Oriented, AO x 3 and No Motor Deficits
Psych: Calm
Data Reviewed
-
Diagnostic Radiology: Report Reviewed by me
Labs: Labs Reviewed by me
[2025-08-20 08:09] LABS: Blood Urea Nitrogen 27 mg/dl (9-20); Calcium 8.4 mg/dl (8.4-10.2); Carbon Dioxide 26 mmol/L (22-30); Chloride 104 mmol/L (98-107); Estimated Creatinine Clearance 46 ml/min; Glucose 87 mg/dl (70-99); Potassium 4.9 mmol/L (3.5-5.1); Sodium 135 mmol/L (135-145); eGFR > 60.00
--- NOTE | 2025-08-20 08:25 | W.PN.CD ---
Today's Communication / Plan
-
Stable post-op
No symptoms feeling OK
Cont meds
We will sign off pls call with questions
Impression / Plan
-
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
left hip facture. We are consulted for pre-operative risk assessment.
# Pre op risk assessment: Left hip intertrochanteric fracture
-now s/p fixation
- cont meds
# CAD
-stable, no angina
-takes ASA 81mg and rosuvastatin 10mg as outpatient
# ICM EF 40-45%
-echo 02/2024: EF 40-45%, mild AR
-no evidence of HF
-cont Toprol XL 25mg bid, lisinopril 40mg daily, aldactone 25mg daily
# HTN
-BP elevated after his hip fracture
-trend, and continue home meds above for GDMT, as well as amlodipine 5mg daily
# PPM: MDT dual chamber
-stable EKG
Physical Exam
Vital Signs/Labs
Vital Signs
Temp Pulse Resp BP Pulse Ox
97.6 F 61 17 127/66 99
08/20/25 03:21 08/20/25 03:21 08/20/25 03:21 08/20/25 03:21 08/20/25 03:21
08/19/25 08/20/25 08/21/25
06:59 06:59 06:59
Actual Weight 134 lb 9 oz
08/20/25 07:30
Physical Exam
Constitutional: No acute distress and Comfortable
EENT: Anicteric
Cardiovascular: Rhythm & rate is regular and Pedal edema is absent
Respiratory: Respiratory effort normal and Lungs clear to auscul.
GI: Soft
Neuro/Psych: Alert and Oriented
Data Reviewed
-
Date of Service: August 20, 2025
EKG: Tracing Personally Visualized and interpreted (sr)
Echo: Report Reviewed by me
Labs: Labs Reviewed by me
[2025-08-20 08:28] LABS: Hematocrit 36.7 % (39.0-52.0); Hemoglobin 11.7 g/dL (13.0-18.0); Mean Corp Hgb Conc. 31.9 g/dL (33.0-37.0); Mean Corpuscular Volume 93.1 fL (80.0-94.0); Platelet Count 174 10^3/uL (130-400); Red Cell Dist. Width 14.9 % (11.5-14.5)
[2025-08-20] MEDS: NSS IV (09:41)
[2025-08-20] MEDS: DELTASONE 2.5 MG PO (09:46)
[2025-08-20] MEDS: TYLENOL 650 MG PO ×3 (09:46→22:00)
[2025-08-20] MEDS: ALDACTONE 25 MG PO (09:46)
[2025-08-20] MEDS: ASPIRIN 325 MG PO (09:46)
[2025-08-20] MEDS: OCUVITE SOFTGEL 1 CAP PO (09:47)
[2025-08-20] MEDS: TOPROL XL 25 MG PO ×2 (09:47→20:53)
[2025-08-20] MEDS: OSCAL 500 + D 500 MG PO (09:47)
[2025-08-20] MEDS: CRESTOR 10 MG PO (09:47)
[2025-08-20] MEDS: COLACE 100 MG PO ×2 (09:47→20:53)
[2025-08-20] MEDS: PROTONIX 20 MG PO (09:47)
[2025-08-20] MEDS: SENOKOT 17.2 MG PO ×2 (09:47→20:53)
[2025-08-20] MEDS: NORVASC 5 MG PO (09:48)
[2025-08-20] MEDS: ZESTRIL 40 MG PO (09:48)
[2025-08-20] MEDS: NAMENDA 5 MG PO (09:48)
--- NOTE | 2025-08-20 11:59 | CM ---
Addendum entered by Cristel Ty 08/21/25 09:45:
PT/OT assessment completed; SNF recommended
[facility] unable to accept
Referral sent to [facility]; referral response to [facility] pending
Original Note:
Waiting for PT/OT eval. Will call his daughter to assist with SNF referrals choices in anticipation of PT/OT eval. Dtr selected [facility] and [facility]. Dtr DOES NOT want pt to go to [facility]..I will email the dtr with the Medicare.gov
5-star report so she can select additional referrals. Referrals placed in [facility]
Pt will need an auth
Plan: DC to SNF when stable
[2025-08-21 07:15] VITALS: BP 163/86
[2025-08-21] MEDS: DELTASONE 2.5 MG PO (08:21)
[2025-08-21] MEDS: CRESTOR 10 MG PO (08:21)
[2025-08-21] MEDS: SENOKOT 17.2 MG PO ×2 (08:21→20:56)
[2025-08-21] MEDS: TYLENOL 650 MG PO ×3 (08:21→20:58)
[2025-08-21] MEDS: NAMENDA 5 MG PO (08:21)
[2025-08-21] MEDS: ASPIRIN 325 MG PO (08:21)
[2025-08-21] MEDS: COLACE 100 MG PO ×2 (08:21→20:56)
[2025-08-21] MEDS: ALDACTONE 25 MG PO (08:21)
[2025-08-21] MEDS: PROTONIX 20 MG PO (08:21)
[2025-08-21] MEDS: NORVASC 5 MG PO (08:22)
[2025-08-21] MEDS: ZESTRIL 40 MG PO (08:22)
[2025-08-21] MEDS: TOPROL XL 25 MG PO ×2 (08:30→20:56)
[2025-08-21] MEDS: OSCAL 500 + D 500 MG PO (08:30)
[2025-08-21] MEDS: OCUVITE SOFTGEL 1 CAP PO (08:30)
--- NOTE | 2025-08-21 09:51 | CM ---
Addendum entered by Cristel Ty 08/21/25 15:33:
Referrals accepted by [facility] and [facility]; Discussed w/ daughter, preference is [facility]
Facility NPI # [id number]
Provider, Dr. Varma, NPI # [id number]
Authorization for [facility] submitted to [facility] # [phone]
Demographics and Clinicals faxed to # [phone]
Reference ID # [id number]
Plan[facility] ambulance pending Authorization approval
Report # [phone]

Addendum entered by Cristel Ty 08/21/25 09:59:
spoke with daughter, she is agreeable to expanding SNF search to other facilities
additional referrals sent via [facility]
Original Note:
Per Attending patient is stable for discharge
PT/OT assessments completed; SNF recommended
[facility] unable to accept
Referral sent to [facility]; referral response to [facility] pending
Plan: Discharge to SNF pending bed availability and auth approval
[2025-08-21 10:46] VITALS: BP 159/91; PULSE 64; O2SAT 95
--- NOTE | 2025-08-21 11:07 | W.PN.HOSP.TC ---
Today's Communication/Plan
-
Continue pain control.
patient is medically cleared for discharge
Assessment / Plan
Assessment / Plan
Impression:
85 years old with a history of metastatic bladder cancer, Alzheimer dementia, hypertension, hyperlipidemia, rheumatoid arthritis who came to the ER status post fall.
Patient was walking outside the house and tripped over a curb, denies head trauma or loss of consciousness.
Landed on his left side but was not able to get up from the ground, and was over there for 1 hour, patient reports left hip pain, but does not denies any chest pain or shortness of breath, no abdominal pain, no nausea, no vomiting, no diarrhea or
constipation.
Patient noted to be hypothermic in the ER.
Hypothermia improved.
Orthopedic consulted.
Cardiology consulted for preoperative clearance.
Patient status post L Hip CMN 08/19/[address] Johnson
Assessment/plan:
Status post fall with left Hip Intertrochanteric Fracture, L Hip CMN 08/19/[address] Johnson
Fracture due to combination of trauma and pathologic fracture due to neoplastic disease, unclear if trauma alone would have caused fracture
Mechanical fall; patient hemodynamically stable.
Oral temperature on arrival: 94�F, resolved.
Hip X-ray: possible nondisplaced left intertrochanteric fracture; possible right subcapital fracture.
CT pelvis shows:
Acute comminuted left intertrochanteric hip fracture.
Improved pelvic lymphadenopathy
Consulted orthopedics for surgical management.
Continue pain control; maintain xao-ffedaz-phaxdaj status.
Pacemaker in place , consulted cardiology - patient medically optimized
PT/OT post-surgery.
Not on anticoagulation.
Continue all home medications except Xtandi and ASA prior to surgery; asa 325 started now for DVT PPx
Orthopedic recommending obtain dictated left femur x-ray to rule out static lesion on left femur.
X-ray shows:
1. ACUTE NONDISPLACED INTERTROCHANTERIC FRACTURE of the LEFT PROXIMAL FEMUR.
2. Mild osteoarthritis in the left hip.
3. Severe osteoarthritis in the right hip.
4. 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
5. Severe bilateral facet joint arthrosis at L4/L5.
6. 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
7. Diffuse bone demineralization.
8. Previous total prostatectomy.
- patient is s/p OR 08/19
-PT/OT recommending rehab
Social service consulted, patient is medically cleared for discharge
Rheumatoid Arthritis
Continue low-dose prednisone and hydroxychloroquine.
Essential Hypertension
Continue all home medications: Lisinopril, Amlodipine, Metoprolol
Monitor blood pressure.
GERD
Continue PPI.
Alzheimer�s Dementia
Continue memantine.
History of Metastatic Bladder Cancer & Prostate Cancer
Hold Xtandi
Heart Failure reduced EF
Ischemic Cardiomyopathy
CODE STATUS: DNR status.
DVT prophylaxis sequential compression device (SCD) for DVT prophylaxis.
Diet: Regular diet.
Disposition: Continue pain control.
patient is medically cleared for discharge
Total time spent on today's encounter was 65 minutes which included time spent in counseling the patient/family regarding diagnosis and treatment plan as listed above, goals of care, and symptom management. Case was discussed with nursing staff,
specialists, and care coordinators/case management. All labs and imaging personally reviewed by me. Remainder the time spent in detailed review of previous records, lab data, imaging, and other medical provider documentation.
Anticipated Discharge: Today
Subjective/Interval History
-
Date of Service: August 21, 2025
Patient seen and examined at bedside, left hip pain but otherwise denies any chest pain or shortness of breath, no abdominal pain, no nausea, no vomiting, no diarrhea or constipation.
Objective Data
-
Vital Signs:
Vital Signs
Temp Pulse Resp BP Pulse Ox
98.0 F 66 15 163/86 93
08/21/25 07:15 08/21/25 07:15 08/21/25 07:15 08/21/25 07:15 08/21/25 07:15
I&O
08/20/25 08/21/25 08/22/25
06:59 06:59 06:59
Intake Total 1060 / 1060
Output Total 900 / 900 300 / 300
Balance 160 / 160 -300 / -300
Physical Exam
-
General: Well Developed, Well Nourished, No Apparent Distress and Comfortable
HEENT: Normocephalic, Atraumatic, Moist Mucous Membranes, No Ptosis, PERRLA and Nose Appears Normal
Respiratory: Clear to Auscultation and Non Labored Respirations
Cardiac: Regular Rhythm and S1/S2
Breast: Deferred by me
GI: Soft, Nontender, Nondistended and Normal Bowel Sounds
Genito-urinary: No Costovertebral Tender
Musculoskeletal: Other (Left hip tender, surgical site clean)
Skin: Warm
Neuro: Awake, Alert, Oriented, AO x 3 and No Motor Deficits
Psych: Calm
[2025-08-21 12:03] VITALS: BP 159/91; PULSE 64; O2SAT 95
--- NOTE | 2025-08-21 14:46 | W.PN.ORTHO ---
Today's Communication / Plan
-
Appreciate the primary team, continue Tx
Dispo per CM, likely SNF
WBAT to left extremity with assistive device
PT/OT
Maintain dressings for 7 to 10 days then may remove
ASA 325mg once daily x 4 weeks for DVT prophylaxis
Pain control
Ortho to sign off. Outpatient follow-up 4 weeks for exam and xrays
Assessment
.
Distal Motor Intact: Yes
Dressing:
Clean, dry and intact. Dressings intact left hip
Assessment:
POD#2 Left hip gamma
Overall doing/feeling better
Calf soft, nontender
Plan
.
Surgery / Date: Left gamma Aug 29 (Alex)
DVT Prophylaxis: Aspirin
Activity:
Out of bed. WBAT LLE on walker
PT/OT
Discharge Plan: SNF (appreciate CM)
Subjective
.
.:
Patient seated comfortably bedside. Less pain left hip but still sore
Vital Signs and Labs
.
Vital Signs and Labs:
Lab Results
08/20/25 07:30
08/20/25 07:30
Temp Pulse Resp BP Pulse Ox
98.0 F 66 15 163/86 93
08/21/25 07:15 08/21/25 07:15 08/21/25 07:15 08/21/25 07:15 08/21/25 07:15
[2025-08-21 15:00] VITALS: BP 118/67
[2025-08-21 23:00] VITALS: BP 142/73
[2025-08-22 06:00] VITALS: BMI 22.5
[2025-08-22 07:00] VITALS: BP 154/96
[2025-08-22 07:10] LABS: Hematocrit 33.7 % (39.0-52.0); Hemoglobin 11.0 g/dL (13.0-18.0); Mean Corp Hgb Conc. 32.6 g/dL (33.0-37.0); Mean Corpuscular Volume 92.1 fL (80.0-94.0); Platelet Count 181 10^3/uL (130-400); Red Cell Dist. Width 14.8 % (11.5-14.5)
[2025-08-22 07:41] LABS: Blood Urea Nitrogen 29 mg/dl (9-20); Calcium 8.9 mg/dl (8.4-10.2); Carbon Dioxide 29 mmol/L (22-30); Chloride 105 mmol/L (98-107); Estimated Creatinine Clearance 57 ml/min; Glucose 82 mg/dl (70-99); Potassium 4.5 mmol/L (3.5-5.1); Sodium 136 mmol/L (135-145); eGFR > 60.00
--- NOTE | 2025-08-22 09:31 | CM ---
Addendum entered by Cristel Ty 08/22/25 13:34:
ambulance moss picker moved to 1400
Addendum entered by Cristel Ty 08/22/25 10:36:
ambulance moss picker @ 1300
Addendum entered by Cristel Ty 08/22/25 10:20:
IMM benefit explained to patient's daughter via phone; form dated/time @ 1016
Original Note:
Auth approved for [facility]; Auth # [id number].
Start date 08/22; next review date 08/26; Lace Roller, Charline Brewster # [phone]
Plan: discharge to [facility] today via ambulance; facility and daughter notified
Report # [phone]
[2025-08-22] MEDS: NORVASC 5 MG PO (09:35)
[2025-08-22] MEDS: CRESTOR 10 MG PO (09:35)
[2025-08-22] MEDS: TYLENOL 650 MG PO (09:35)
[2025-08-22] MEDS: OSCAL 500 + D 500 MG PO (09:35)
[2025-08-22] MEDS: NAMENDA 5 MG PO (09:35)
[2025-08-22] MEDS: TOPROL XL 25 MG PO (09:36)
[2025-08-22] MEDS: OCUVITE SOFTGEL 1 CAP PO (09:36)
[2025-08-22] MEDS: PROTONIX 20 MG PO (09:36)
[2025-08-22] MEDS: DELTASONE 2.5 MG PO (09:36)
[2025-08-22] MEDS: SENOKOT 17.2 MG PO (09:36)
[2025-08-22] MEDS: ALDACTONE 25 MG PO (09:36)
[2025-08-22] MEDS: ASPIRIN 325 MG PO (09:36)
[2025-08-22] MEDS: COLACE 100 MG PO (09:36)
[2025-08-22] MEDS: ZESTRIL 40 MG PO (09:37)
[2025-08-22] MEDS: MIRALAX 17 GRAMS PO (09:42)
--- NOTE | 2025-08-22 11:01 | W.PN.HOSP.TC ---
Today's Communication/Plan
-
Added bisacodyl suppository
patient is medically cleared for discharge
Assessment / Plan
Assessment / Plan
Impression:
85 years old with a history of metastatic bladder cancer, Alzheimer dementia, hypertension, hyperlipidemia, rheumatoid arthritis who came to the ER status post fall.
Patient was walking outside the house and tripped over a curb, denies head trauma or loss of consciousness.
Landed on his left side but was not able to get up from the ground, and was over there for 1 hour, patient reports left hip pain, but does not denies any chest pain or shortness of breath, no abdominal pain, no nausea, no vomiting, no diarrhea or
constipation.
Patient noted to be hypothermic in the ER.
Hypothermia improved.
Orthopedic consulted.
Cardiology consulted for preoperative clearance.
Patient status post L Hip CMN 08/19/[address] Johnson
Seen by physical therapy and plan for discharge to rehab today.
Assessment/plan:
Status post fall with left Hip Intertrochanteric Fracture, L Hip CMN 08/19/[address] Johnson
Fracture due to combination of trauma and pathologic fracture due to neoplastic disease, unclear if trauma alone would have caused fracture
Mechanical fall; patient hemodynamically stable.
Oral temperature on arrival: 94�F, resolved.
Hip X-ray: possible nondisplaced left intertrochanteric fracture; possible right subcapital fracture.
CT pelvis shows:
Acute comminuted left intertrochanteric hip fracture.
Improved pelvic lymphadenopathy
Consulted orthopedics for surgical management.
Continue pain control; maintain [id number]-furarg-gpmcffu status.
Pacemaker in place , consulted cardiology - patient medically optimized
PT/OT post-surgery.
Not on anticoagulation.
Continue all home medications except Xtandi and ASA prior to surgery; asa 325 started now for DVT PPx
Orthopedic recommending obtain dictated left femur x-ray to rule out static lesion on left femur.
X-ray shows:
1. ACUTE NONDISPLACED INTERTROCHANTERIC FRACTURE of the LEFT PROXIMAL FEMUR.
2. Mild osteoarthritis in the left hip.
3. Severe osteoarthritis in the right hip.
4. 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
5. Severe bilateral facet joint arthrosis at L4/L5.
6. 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
7. Diffuse bone demineralization.
8. Previous total prostatectomy.
- patient is s/p OR 08/19
-PT/OT recommending rehab
Social service consulted, patient is medically cleared for discharge
Rheumatoid Arthritis
Continue low-dose prednisone and hydroxychloroquine.
Essential Hypertension
Continue all home medications: Lisinopril, Amlodipine, Metoprolol
Monitor blood pressure.
GERD
Continue PPI.
Alzheimer�s Dementia
Continue memantine.
History of Metastatic Bladder Cancer & Prostate Cancer
Hold Xtandi
Heart Failure reduced EF
Ischemic Cardiomyopathy
CODE STATUS: DNR status.
DVT prophylaxis sequential compression device (SCD) for DVT prophylaxis.
Diet: Regular diet.
Disposition: Added bisacodyl suppository
patient is medically cleared for discharge
Total time spent on today's encounter was 65 minutes which included time spent in counseling the patient/family regarding diagnosis and treatment plan as listed above, goals of care, and symptom management. Case was discussed with nursing staff,
specialists, and care coordinators/case management. All labs and imaging personally reviewed by me. Remainder the time spent in detailed review of previous records, lab data, imaging, and other medical provider documentation.
Anticipated Discharge: Today
Subjective/Interval History
-
Date of Service: August 22, 2025
Patient seen and examined at bedside, left hip pain but otherwise denies any chest pain or shortness of breath, no abdominal pain, no nausea, no vomiting, no diarrhea
Positive for constipation, will add bisacodyl suppository
Objective Data
-
Labs:
Laboratory Results
08/22/25
06:29
WBC 8.4
Hgb 11.0 L
Hct 33.7 L
Plt Count 181
Sodium 136
Potassium 4.5
Chloride 105
Carbon Dioxide 29
BUN 29 H
Creatinine 0.8
Glucose 82
Calcium 8.9
Vital Signs:
Vital Signs
Temp Pulse Resp BP Pulse Ox
97.9 F 61 15 154/96 94
08/22/25 07:00 08/22/25 07:00 08/22/25 07:00 08/22/25 07:00 08/22/25 07:00
I&O
08/21/25 08/22/25 08/23/25
06:59 06:59 06:59
Intake Total 952 / 952 120 / 120
Output Total 300 / 300
Balance -300 / -300 952 / 952 120 / 120
Physical Exam
-
General: Well Developed, Well Nourished, No Apparent Distress and Comfortable
HEENT: Normocephalic, Atraumatic, Moist Mucous Membranes, No Ptosis, PERRLA and Nose Appears Normal
Respiratory: Clear to Auscultation and Non Labored Respirations
Cardiac: Regular Rhythm and S1/S2
Breast: Deferred by me
GI: Soft, Nontender, Nondistended and Normal Bowel Sounds
Genito-urinary: No Costovertebral Tender
Musculoskeletal: Other (Left hip tender, surgical site clean)
Skin: Warm
Neuro: Awake, Alert, Oriented, AO x 3 and No Motor Deficits
Psych: Calm
--- NOTE | 2025-08-22 11:08 | W.DCSUMMARY ---
Discharge Summary
Discharge Data
Date of Admission: 08/17/25
Date of Discharge: 08/22/25
Total time spent discharging patient (in min): 40
-
Pending Results: No
Hospital Course
Hospital course
85 years old with a history of metastatic bladder cancer, Alzheimer dementia, hypertension, hyperlipidemia, rheumatoid arthritis who came to the ER status post fall.
Patient was walking outside the house and tripped over a curb, denies head trauma or loss of consciousness.
Landed on his left side but was not able to get up from the ground, and was over there for 1 hour, patient reports left hip pain, but does not denies any chest pain or shortness of breath, no abdominal pain, no nausea, no vomiting, no diarrhea or
constipation.
Patient noted to be hypothermic in the ER.
Hypothermia improved.
Orthopedic consulted.
Cardiology consulted for preoperative clearance.
Patient status post L Hip CMN 08/19/[address] Johnson
Seen by physical therapy and plan for discharge to rehab today.
During hospitalization patient was treated from the following
Status post fall with left Hip Intertrochanteric Fracture, L Hip CMN 08/19/[address] Johnson
Fracture due to combination of trauma and pathologic fracture due to neoplastic disease, unclear if trauma alone would have caused fracture
Mechanical fall; patient hemodynamically stable.
Oral temperature on arrival: 94�F, resolved.
Hip X-ray: possible nondisplaced left intertrochanteric fracture; possible right subcapital fracture.
CT pelvis shows: Acute comminuted left intertrochanteric hip fracture.
Improved pelvic lymphadenopathy
Consulted orthopedics for surgical management.
Continue pain control; maintain [id number]-smrcty-[id number] status.
Pacemaker in place , consulted cardiology - patient medically optimized
PT/OT post-surgery.
Not on anticoagulation.
Continue all home medications except Xtandi and ASA prior to surgery; asa 325 started now for DVT PPxOrthopedic recommending obtain dictated left femur x-ray to rule out static lesion on left femur.
X-ray shows:
1. ACUTE NONDISPLACED INTERTROCHANTERIC FRACTURE of the LEFT PROXIMAL FEMUR.
2. Mild osteoarthritis in the left hip.
3. Severe osteoarthritis in the right hip.
4. 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
5. Severe bilateral facet joint arthrosis at L4/L5.
6. 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
7. Diffuse bone demineralization.
8. Previous total prostatectomy.
- patient is s/p OR 08/19
-PT/OT recommending rehab
Social service consulted, patient is medically cleared for discharge
Rheumatoid Arthritis
Continue low-dose prednisone and hydroxychloroquine.
Essential Hypertension
Continue all home medications: Lisinopril, Amlodipine, Metoprolol
Monitor blood pressure.
GERD
Continue PPI.
Alzheimer�s Dementia
Continue memantine.
History of Metastatic Bladder Cancer & Prostate Cancer
Hold Xtandi
Heart Failure reduced EF
Ischemic Cardiomyopathy
CODE STATUS: DNR status.
DVT prophylaxis sequential compression device (SCD) for DVT prophylaxis.
Diet: Regular diet.
Disposition: Added bisacodyl suppository
patient is medically cleared for discharge
Total time spent on today's encounter was 40 minutes which included time spent in counseling the patient/family regarding diagnosis and treatment plan as listed above, goals of care, and symptom management. Case was discussed with nursing staff,
specialists, and care coordinators/case management. All labs and imaging personally reviewed by me. Remainder the time spent in detailed review of previous records, lab data, imaging, and other medical provider documentation.
Anticipated Discharge: Today
Discharge Plan
-
Patient Disposition: Penitentiary/SNF
Discharge Diagnosis/Procedures: Status post fall with left Hip Intertrochanteric Fracture s/p Hip CMN
Rheumatoid Arthritis
Essential Hypertension
GERD
Alzheimer�s Dementia
History of Metastatic Bladder Cancer & Prostate Cancer
Diet: As tolerated and Regular
Activity: With assistance and As tolerated
Referrals:
Kapil Greco CRNP [Family Provider, Family Practice]
Moira Johnson DO [Active, Orthopedics] - in one month
Prescriptions:
New
acetaminophen 325 mg Tablet
650 mg PO Q6HPRN PRN (Reason: Pain) Qty: 0 0RF
aspirin 325 mg Tablet
325 mg PO DAILY 28 Days Qty: 28 0RF
sennosides-docusate sodium [Senna Plus] 8.6-50 mg Tablet
1 tab PO BIDPRN PRN (Reason: constipation) Qty: 0 0RF
bisacodyl 10 mg Suppository
10 mg MT [id number] PRN (Reason: constipation) Qty: 0 0RF
docusate sodium 100 mg Capsule
100 mg PO BID Qty: 0 0RF
metoprolol succinate 25 mg Tablet Extended Release 24 Hr
25 mg PO BID Qty: 0 0RF
Continued
prednisone 2.5 MG tablet
2.5 mg PO DAILY
spironolactone 50 MG tablet
25 mg PO DAILY
rosuvastatin 10 MG tablet
10 mg PO DAILY
PreserVision AREDS-2 1 EACH capsule
1 cap PO DAILY
amlodipine 5 mg Tablet
5 mg PO DAILY
lansoprazole 15 mg Capsule,Delayed Release(Dr/Ec)
15 mg PO DAILY
lisinopril 40 mg Tablet
40 mg PO DAILY
memantine 5 mg Tablet
5 mg PO DAILY
calcium carbonate-vitamin D3 [Calcium 600 + D(3)] 600 mg-10 mcg (400 unit) Tablet
1 tab PO DAILY
Xtandi 40 mg Capsule
80 mg PO DAILY
hydroxychloroquine 200 MG tablet
400 mg PO DAILY
Patient Comments:
patient says that he takes both tab at once instead of BID
Discontinued
aspirin 81 MG tablet,delayed release (DR/EC)
81 mg PO DAILY
metoprolol succinate 50 mg Tablet Extended Release 24 Hr
50 mg PO DAILY
Discharge Orders:
Discharge Patient (As Directed); Ordered 08/22/25
Ordered By: Janine Haile
Discharge Date and Time
Print Language: [id number]
[2025-08-22] MEDS: DULCOLAX 10 MG RECTAL (11:50)
[2025-08-22] MEDS: ROXICODONE 5 MG PO (12:33)
[2025-08-22 13:30] VITALS: BP 142/75
== END 2025-08-22 15:25 | DRG 481 ==
LOC: 2 SOUTH 14:42
PROVIDERS: Student in an Organized Health Care Education/Training Program; Surgery Trauma Surgery; ADMITTING PHYSICIAN Student in an Organized Health Care Education/Training Program; ATTENDING PHYSICIAN General Practice; CONSULT PHYSICIAN Internal Medicine; CONSULT PHYSICIAN Orthopaedic Surgery; EMERGENCY PHYSICIAN Emergency Medicine; FAMILY PHYSICIAN Nurse Practitioner Family
PROC: 0QS704Z Reposition Left Upper Femur with Internal Fixation Device, Open Approach (ICD-10-PCS; 2025-08-17)
DX: M84.552A Pathological fracture in neoplastic disease, left femur, initial encounter for fracture (principal); C79.51 Secondary malignant neoplasm of bone; I50.20 Unspecified systolic (congestive) heart failure; M06.9 Rheumatoid arthritis, unspecified; M16.0 Bilateral primary osteoarthritis of hip; C67.9 Malignant neoplasm of bladder, unspecified; I11.0 Hypertensive heart disease with heart failure; K21.9 Gastro-esophageal reflux disease without esophagitis; Z66 Do not resuscitate; S72.142A Displaced intertrochanteric fracture of left femur, initial encounter for closed fracture; Z75.1 Person awaiting admission to adequate facility elsewhere; W01.0XXA Fall on same level from slipping, tripping and stumbling without subsequent striking against object, initial encounter; F17.200 Nicotine dependence, unspecified, uncomplicated; Z79.82 Long term (current) use of aspirin
CPT/HCPCS: 70450; 72125; 72192; 73502; 73552; 76000; 80048; 80053; 82550; 83605; 85025; 85027; 86850; 86900; 86901; 93005; 97163; 97167; 97530; 97535; 99285; C1713; C1769